=== PATIENT | male | born 1960 | race Caucasian/White ===

== ENCOUNTER 2017-03-21 01:18 | Emergency (ER) | payer OTHER ==
[2017-03-21 01:50] VITALS: TEMP 98; BMI 22.0
[2017-03-21] MEDS ORDERED: SODIUM CHLORIDE 1,000 ML IV STA (03:07)
--- NOTE | 2017-03-21 03:23 | PDOC ---
History of Present Illness - General Chief Complaint: Injury Stated Complaint: FALL,HEROIN ABUSE Time Seen by Provider: 03/21/17 02:56 History Source: Patient, Family Exam Limitations: Clinical Condition - History of Present Illness Initial Comments: 03/21/17 03:21 56yo Male patient w/ PmHx: Chronic Back Pain, Heroin Abuse presents to ED via EMS from [facility]. Patient states he used a bundle of heroin, and while attending to his daughters' puppy, he slipped and fell in his Kitchen. Patient states daughter found him on kitchen floor and they decided to bring patient to [facility] for Detox. Patient was evaluated at [facility] and sent to this ED for evaluation. PCP-None. Occurred: reports: this evening. denies: just prior to arrival, this morning, this afternoon, yesterday, last week, other Severity: reports: moderate. denies: mild, severe Pain Location: reports: back, pelvis, upper extremity. denies: none, abdomen, chest, face, head, lower extremity, mouth, neck, other Method of Injury: Yes: fall. No: unknown, assault, direct blow, motor vehicle crash, other Modifying Factors: worse with: None, cold therapy, immobilization, pain medication, rest, other Loss of Consciousness: no loss of consciousness Associated Symptoms (Fall): denies symptoms Past History - Travel Traveled outside of the country in the last 30 days: No Close contact w/someone who was outside of country & ill: No - Past Medical History Allergies/Adverse Reactions: Allergies Allergy/AdvReac Type Severity Reaction Status Date / Time No Known Allergies Allergy Verified 03/21/17 01:41 COPD: No Other medical history: back pain - Suicide/Smoking/Psychosocial Hx Smoking History: Current some day smoker Have you smoked in the past 12 months: No Information on smoking cessation initiated: No Hx Alcohol Use: Yes Drug/Substance Use Hx: Yes Trauma Specific PMHX - Complaint Specific PMHX Arthritis: No Back Injury: No Neck Injury: No Hx Sacro Iliac Joint Dysfunction: No Review of Systems - Review of Systems Able to Perform ROS?: Yes Is the patient limited Armenian proficient: No Musculoskeletal: Yes: Back Pain, Joint Pain All Other Systems: Reviewed and Negative *Physical Exam - Vital Signs Last Vital Signs Temp Pulse Resp BP Pulse Ox 98 F 75 16 108/68 100 03/21/17 01:35 03/21/17 01:35 03/21/17 01:35 03/21/17 01:35 03/21/17 01:35 - Physical Exam General Appearance: Yes: Nourished, Appropriately Dressed, Other (Under the influence of a substance (Heroin)). No: Apparent Distress, Mild Distress, Moderate Distress, Severe Distress HEENT: positive: EOMI, SABINA (Pinpoint pupils), Normal ENT Inspection, Normal Voice, Symmetrical, TMs Normal, Pharynx Normal. negative: Pharyngeal Erythema, Tonsillar Exudate, Tonsillar Erythema, Nasal Congestion, Rhinorrhea, Sinus Tenderness Neck: positive: Trachea midline, Supple. negative: Rigid, Stridor, Lymphadenopathy (R), Lymphadenopathy (L), Tender lateral, Tender midline Respiratory/Chest: positive: Lungs Clear, Normal Breath Sounds. negative: Chest Tender, Respiratory Distress, Accessory Muscle Use, Labored Respiration, Rapid RR, Crackles, Rales, Rhonchi, Stridor, Wheezing Cardiovascular: positive: Regular Rhythm, Regular Rate Gastrointestinal/Abdominal: positive: Normal Bowel Sounds, Soft, Hernia. negative: Tender, Distended, Guarding, Rebound, Tenderness Musculoskeletal: positive: Normal Inspection. negative: CVA Tenderness, Decreased Range of Motion, Vertebral Tenderness Extremity: positive: Normal Capillary Refill, Normal Inspection, Normal Range of Motion, Tender (Right hip and Left Shoulder), Pelvis Stable Integumentary: positive: Normal Color, Dry, Warm Neurologic: positive: custodial manager II-XII NML intact, Fully Oriented, Alert, Normal Mood/ Affect, Normal Response, Motor Strength 5/5 ED Treatment Course - RADIOLOGY Radiology Studies Ordered: Category Date Time Status CHEST PA & LAT [RAD] Stat Radiology 03/21/17 03:07 Ordered HIP & PELVIS-RIGHT [RAD] Stat Radiology 03/21/17 03:07 Ordered SHOULDER-RIGHT [RAD] Stat Radiology 03/21/17 03:07 Ordered
--- NOTE | 2017-03-21 04:16 | PDOC ---
*Physical Exam - Vital Signs Last Vital Signs Temp Pulse Resp BP Pulse Ox 98 F 75 16 108/68 100 03/21/17 01:35 03/21/17 01:35 03/21/17 01:35 03/21/17 01:35 03/21/17 01:35 ED Treatment Course - LABORATORY CBC & Chemistry Diagram: 03/21/17 04:20 03/21/17 05:00 Medical Decision Making - Medical Decision Making 03/21/17 04:15 agree with care from JUSTYNA Kent *DC/Admit/Observation/Transfer Diagnosis at time of Disposition: Left hip pain - Discharge Dispostion Disposition: HOME Condition at time of disposition: Good - Referrals - Patient Instructions Printed Discharge Instructions: Help for Hip Pain Additional Instructions: your CAT scan shows no fracture or dislocation. Marked osteoarthritis of the right hip. I recommend taking Motrin for discomfort and follow up with referred orthopedist if pain continues - Post Discharge Activity
[2017-03-21 04:33] LABS: BASOPHIL 0.4 % (0-2.0); EOSINOPHIL 0.1 % (0-4.5); MCH 31.2 pg (25.7-33.7); MCHC 34.3 g/dl (32.0-35.9); MEAN CELL VOLUME 91.1 fl (80-96); MEAN PLT VOLUME 6.9 fl (7.5-11.1); NEUTROPHILS 80.8 % (42.8-82.8); PLATELET COUNT 183 K/MM3 (134-434); RDW 14.9 % (11.9-15.9); WHITE BLOOD COUNT 15.9 K/mm3 (4.0-10.0)
[2017-03-21 05:50] LABS: ALBUMIN 3.6 g/dl (3.4-5.0); ALK PHOS 68 U/L (45-117); ANION GAP 11 (8-16); BILIRUBIN,TOTAL 0.4 mg/dL (0.2-1.0); CALCIUM 8.3 mg/dL (8.5-10.1); CO2 23 mmol/L (21-32); CREATININE 2.1 mg/dL (0.7-1.3); GLUCOSE,RANDOM 99 mg/dL (74-106); SGPT/ALT 180 U/L (12-78); TOT PROT 6.2 g/dl (6.4-8.2)
[2017-03-21 05:51] LABS: SGOT/AST 745 U/L (15-37)
--- NOTE | 2017-03-21 07:36 | PDOC ---
*Physical Exam - Vital Signs Last Vital Signs Temp Pulse Resp BP Pulse Ox 98 F 75 16 108/68 100 03/21/17 01:35 03/21/17 01:35 03/21/17 01:35 03/21/17 01:35 03/21/17 01:35 ED Treatment Course - LABORATORY CBC & Chemistry Diagram: 03/21/17 04:20 03/21/17 05:00 - ADDITIONAL ORDERS Additional order review: Laboratory Results 03/21/17 03/21/17 03/21/17 05:00 05:00 04:20 Sodium 139 Potassium 4.6 Chloride 105 Carbon Dioxide 23 Anion Gap 11 BUN 28 H Creatinine 2.1 H Creat Clearance w eGFR 32.95 Random Glucose 99 Calcium 8.3 L Total Bilirubin 0.4 AST 745 H ALT 180 H Alkaline Phosphatase 68 Total Protein 6.2 L Albumin 3.6 Alcohol, Quantitative 53.6 H* Cancelled 03/21/17 04:20 Sodium Cancelled Potassium Cancelled Chloride Cancelled Carbon Dioxide Cancelled Anion Gap Cancelled BUN Cancelled Creatinine Cancelled Creat Clearance w eGFR Cancelled Random Glucose Cancelled Calcium Cancelled Total Bilirubin Cancelled AST Cancelled ALT Cancelled Alkaline Phosphatase Cancelled Total Protein Cancelled Albumin Cancelled Alcohol, Quantitative 03/21/17 04:20 RBC 4.87 MCV 91.1 MCHC 34.3 RDW 14.9 MPV 6.9 L Neutrophils % 80.8 Lymphocytes % 11.7 Monocytes % 7.0 Eosinophils % 0.1 Basophils % 0.4 - Medications Given in the ED: ED Medications Discontinued Medications Generic Name Dose Route Start Last Admin Trade Name Freq PRN Reason Stop Dose Admin Sodium Chloride 1,000 mls @ 1,000 mls/hr 03/21/17 03:07 03/21/17 04:32 Normal Saline - IV 03/21/17 04:06 1,000 mls/hr ASDIR STA Administration Medical Decision Making - Medical Decision Making 03/21/17 07:36 Patient received in sign out from preston Clark Patient here with complaints of status post fall with complaints of bilateral hip pain and left shoulder pain. Patient had CAT scan performed of the lower extremity which showed no acute findings. Shoulder x-ray and chest x-ray negative for acute findings. Pelvic CT pending 03/21/17 07:[address] -. *DC/Admit/Observation/Transfer Diagnosis at time of Disposition: Left hip pain - Discharge Dispostion Disposition: HOME Condition at time of disposition: Good - Referrals - Patient Instructions Printed Discharge Instructions: Help for Hip Pain Additional Instructions: your CAT scan shows no fracture or dislocation. Marked osteoarthritis of the right hip. I recommend taking Motrin for discomfort and follow up with referred orthopedist if pain continues - Post Discharge Activity
[2017-03-21 08:45] VITALS: BP 110/71; PULSE 72
== END 2017-03-21 08:45 | disposition home or self-care (01) ==
LOC: JER 01:18
PROC: 3E0337Z Introduction of Electrolytic and Water Balance Substance into Peripheral Vein, Percutaneous Approach (ICD-10-PCS; principal; 2017-03-21)
DX: M25.512 Pain in left shoulder (principal); M25.552 Pain in left hip; W01.0XXA Fall on same level from slipping, tripping and stumbling without subsequent striking against object, initial encounter; Y93.K9 Activity, other involving animal care; Y92.030 Kitchen in apartment as the place of occurrence of the external cause
CPT/HCPCS: 36415; 71020-TC; 72192-TC; 73030-TC-LT; 73523-TC; 80053; 80307; 85025; 99283-25

== ENCOUNTER 2017-03-21 10:36 | Inpatient (IN) | payer OTHER ==
[2017-03-21 10:54] VITALS: BMI 22.8
--- NOTE | 2017-03-21 12:28 | HP ---
COWS - Scale Resting Pulse: 1= [place] 81-100 Sweatin= Chills/Flushing Restless Observation: 3= Extraneous Movement Pupil Size: 0= Normal to Room Light Bone or Joint Aches: 4=Acute Joint/Muscle Pain Runny Nose/ Eye Tearin= None GI Upset > 30mins: 0= None Tremor Observation: 2= Slight Tremor Visible Yawning Observation: 0= None Anxiety or Irritability: 2=Irritable/Anxious Goose Flesh Skin: 0=Smooth Skin COWS Score: 13 CIWA Score - CIWA Score Nausea/Vomitin-No Nausea/No Vomiting Muscle Tremors: 5 Anxiety: 5 Agitation: 4-Moderately Restless Paroxysmal Sweats: No Perspiration Orientation: 0-Oriented Tacttile Disturbances: 3-Moderate Itch/Numb/Burn Auditory Disturbances: 0-None Visual Disturbances: 0-None Headache: 0-None Present CIWA-Ar Total Score: 17 Admission ROS BHS - HPI Chief Complaint: WITHDRAWAL SX FROM HEROIN AND ALCOHOL Allergies/Adverse Reactions: Allergies Allergy/AdvReac Type Severity Reaction Status Date / Time No Known Allergies Allergy Verified 03/21/17 11:02 History of Present Illness: 56 Y/O MALE WITH A HX OF HEROIN AND ALCOHOL DEPENDENCE SEEKING DETOX TX. PT RETURNED FROM [facility] THIS MORNING TO FOLLOW UP WITH DETOX AFTER CLEARANCE RE:FALL AT HOME YESTERDAY.. Exam Limitations: No Limitations - Ebola screening Have you traveled outside of the country in the last 21 days: No Have you had contact with anyone from an Ebola affected area: No Have you been sick,other than usual withdrawal symptoms: No Do you have a fever: No - Review of Systems Constitutional: Chills, Loss of Appetite, Night Sweats, Changes in sleep, Unintentional Wgt. Loss EENT: reports: Blurred Vision, Tearing, Nose Congestion Respiratory: reports: No Symptoms reported Cardiac: reports: Lightheadedness GI: reports: Constipated (TAKES STOOL SOFTENER), Diarrhea, Nausea, Poor Fluid Intake, Vomiting : reports: No Symptoms Reported Musculoskeletal: reports: Back Pain, Joint Pain, Muscle Pain Integumentary: reports: Bruising (FROM FALL-LEFT HIP SWELLING) Neuro: reports: Dizziness Endocrine: reports: No Symptoms Reported Hematology: reports: No Symptoms Reported Psychiatric: reports: Orientated x3, Anxious, Depressed Other Systems: Reviewed and Negative Patient History - Patient Medical History Hx Anemia: No Hx Asthma: No Hx Chronic Obstructive Pulmonary Disease (COPD): No Hx Cardiac Disorders: No Hx Hypertension: No Hx Hypercholesterolemia: No HX Cerebrovascular Accident: No Hx Seizures: No Hx Diabetes: No Hx Gastrointestinal Disorders: Yes (ON/OFF-USES BAKING SODA) Hx Liver Disease: No Hx Genitourinary Disorders: No Hx Sexually Transmitted Disorders: No Hx Renal Disease (ESRD): No Hx Thyroid Disease: No Hx Human Immunodeficiency Virus (HIV): No (NEGATIVE HX) Hx Hepatitis C: No Hx Depression: Yes (DX 15 YRS AGO-STOPPED MEDS AND NEVER WENT BACK TO DR.) Hx Suicide Attempt: No Hx Schizophrenia: No - Patient Surgical History Past Surgical History: No Hx Neurologic Surgery: No Hx Cataract Extraction: No Hx Cardiac Surgery: No Hx Lung Surgery: No Hx Breast Surgery: No Hx Breast Biopsy: No Hx Abdominal Surgery: No Hx Appendectomy: No Hx Cholecystectomy: No Hx Genitourinary Surgery: No Hx Orthopedic Surgery: No Anesthesia Reaction: No - PPD History Previous Implant?: Yes Documented Results: Negative w/o proof Implanted On Prior [facility] Admission?: No PPD to be Administered?: Yes - Reproductive History Patient is a Female of Child Bearing Age (11 -55 yrs old): No (MALE) - Smoking Cessation Smoking history: Current every day smoker Have you smoked in the past 12 months: Yes Aproximately how many cigarettes per day: 20 Hx Chewing Tobacco Use: No Initiated information on smoking cessation: Yes 'Breaking Loose' booklet given: 03/21/17 - Substance & Tx. History Hx Alcohol Use: Yes (WHISKEY/BEER) Hx Substance Use: Yes (HEROIN) Substance Use Type: Alcohol, Heroin Hx Substance Use Treatment: Yes ([facility]) - Substances Abused Heroin Route: Inhalation Frequency: Daily Amount used: 10-15 bags Age of first use: 51 Date of Last Use: 03/20/17 Alcohol-whisky/beer Route: Oral Frequency: Daily Amount used: 2 pts./3-6 pks. Age of first use: 11 Date of Last Use: 03/20/17 Family Disease History - Family Disease History Family Disease History: Heart Disease: Mother (SX-ALIVE), CA: Father (LUNG CA- ), Other: Brother (ADDICTION) Admission Physical Exam BHS - Vital Signs Vital Signs: Vital Signs - 24 hr 03/21/17 10:53 Temperature 97.7 F Pulse Rate 90 Respiratory 20 Rate Blood Pressure 124/65 - Physical General Appearance: Yes: Severe Distress, Irritable, Anxious HEENTM: Yes: EOMI, Normocephalic, SABINA, Pharynx Normal Respiratory: Yes: Chest Non-Tender, Lungs Clear, Normal Breath Sounds, No Respiratory Distress Neck: Yes: No masses,lesions,Nodules, Supple, Trachea in good position Breast: Yes: Breast Exam Deferred Cardiology: Yes: Regular Rhythm, Regular Rate, S1, S2 Abdominal: Yes: Normal Bowel Sounds, Non Tender, Flat Genitourinary: Yes: Other (N/C) Back: Yes: Vertebral Tenderness (POST FALL PAIN- GENERALIZED PAIN BUT WITH SEVERITY TO LEFT SIDE SHOULDER AND HIP. HX ARTHRITIS RIGHT SIDE.) Musculoskeletal: Yes: Back pain, Muscle Pain Extremities: Yes: Normal Range of Motion, Swelling (LEFT HIP. NO REDNESS OR DISCOLORATION.), Other (PAIN ON LEFT SIDE) Neurological: Yes: safety spec II-XII NML intact, Fully Oriented, Alert Integumentary: Yes: Dry, Warm Lymphatic: Yes: Within Normal Limits - Diagnostic (1) Opioid dependence with withdrawal Current Visit: Yes Status: Acute (2) Alcohol dependence with uncomplicated withdrawal Current Visit: Yes Status: Acute (3) Left hip pain Current Visit: Yes Status: Acute (4) Status post fall Current Visit: Yes Status: Acute Comment: FELL AT HOME YESTERDAY 03/20/17 AND EVALUATED AT [facility]. (5) Arthritis of right hip Current Visit: Yes Status: Chronic Cleared for Admission [facility] - Detox or Rehab [facility] Level of Care: Medically Managed Detox Regimen/Protocol: Methadone/Librium [facility] Breath Alcohol Content Breath Alcohol Content: 0 Urine Drug Screen - Results Drug Screen Negative: No Urine Drug Screen Results: OPI-Opiates
[2017-03-21] MEDS ORDERED: MAGNESIUM CITRATE 300 ML BOTTLE PO PRN (12:51)
[2017-03-21] MEDS ORDERED: ACETAMINOPHEN 325 MG TABLET (FP) PO PRN (12:51)
[2017-03-21] MEDS ORDERED: NICOTINE POLACRILEX 4 MG GUM BUC PRN (12:51)
[2017-03-21] MEDS ORDERED: MAG HYDROX/AL HYDROX/SIMETH 30 ML UNIT-DOSE CUP PO PRN (12:51)
[2017-03-21] MEDS ORDERED: LOPERAMIDE HCL 2 MG CAPSULE PO PRN (12:51)
[2017-03-21] MEDS ORDERED: MAGNESIUM HYDROX 2400MG/30ML ORAL SUSPENSION 30 ML CUP PO PRN (12:51)
[2017-03-21] MEDS ORDERED: chlordiazePOXIDE HCL 25 MG CAPSULE PO PRN (12:51)
[2017-03-21] MEDS ORDERED: guaiFENesin/D-METHORPHAN HB 10 ML UNIT-DOSE CUPS PO PRN (12:51)
[2017-03-21] MEDS ORDERED: IBUPROFEN 400 MG TABLET (FP) PO PRN (12:51)
[2017-03-21] MEDS ORDERED: MENTHOL/PHENOL 1 EACH UD MM PRN (12:51)
[2017-03-21] MEDS ORDERED: P-EPHED 60MG/TRIPROLIDI 2.5MG TABLET PO PRN (12:51)
[2017-03-21] MEDS ORDERED: chlordiazePOXIDE HCL 25 MG CAPSULE PO ONE (13:01)
[2017-03-21] MEDS ORDERED: METHADONE HCL 10 MG TABLET (FOR DETOX USE ONLY) PO ONE ×2 (13:02→23:00)
[2017-03-21] MEDS: NICOTINE 21 MG/24 HOURS TOPICAL PATCH TD SCH (14:28)
--- NOTE | 2017-03-21 15:08 | CONSULT ---
[facility] Psychiatric Consult - Data Date of interview: 03/21/17 Admission source: [facility] Identifying data: This is 56 years old male with psychiatric hospitalization history intoxicated with: Alcohol, Heroin and Nicotine Substance Abuse History: - Smoking Cessation. Smoking history: Current every day smoker. Have you smoked in the past 12 months: Yes. Aproximately how many cigarettes per day: 20. Hx Chewing Tobacco Use: No. Initiated information on smoking cessation: Yes. 'Breaking Loose' booklet given: 03/21/17. - Substance & Tx. History. Hx Alcohol Use: Yes (WHISKEY/BEER). Hx Substance Use: Yes ( HEROIN). Substance Use Type: Alcohol, Heroin. Hx Substance Use Treatment: Yes ([facility]OX). - Substances Abused. Heroin. Route: Inhalation. Frequency: Daily. Amount used: 10-15 bags. Age of first use: 51. Date of Last Use: 03/20/17. Alcohol-whisky/beer. Route: Oral. Frequency: Daily. Amount used: 2 pts./3-6 pks. Age of first use: 11. Date of Last Use: 03/20/17 Medical History: Left Hip injury, Right Hip Arthritis Psychiatric History: Patient reports no past psychioatric history, as per computer there is a history of Depression , patient refusing to continue psychiatric medications on about one year ago. Reports unclear psychiatric hospitalization on about 81 years ago, denies suicidal history. Physical/Sexual Abuse/Trauma History: Denies Additional Comment: Observation. Detox Unit Care Protocol Mental Status Exam - Mental Status Exam Alert and Oriented to: Person Cognitive Function: Fair Mood: Sad Affect: Flat Patient Behavior: Uncooperative Speech Pattern: Delayed Voice Loudness: Mildly Soft/Quiet Thought Process: Goal Oriented Thought Disorder: Being Controlled Hallucinations: Denies Suicidal Ideation: Denies Homicidal Ideation: Denies Insight/Judgement: Fair Sleep: Difficulty falling asleep Appetite: Weight loss Muscle strength/Tone: Mild Hypotonicity Gait/Station: Deferred Additional Comments: Observation. Detox Unit Care Protocol Psychiatric Findings - Problem List (Copen 1, 2,3) (1) Drug-induced mood disorder Current Visit: Yes Status: Acute (2) Drug-induced mood disorder Current Visit: Yes Status: Acute (3) Alcohol dependence with uncomplicated withdrawal Current Visit: Yes Status: Acute (4) Opioid dependence with withdrawal Current Visit: Yes Status: Acute (5) Status post fall Current Visit: Yes Status: Acute Comment: FELL AT HOME YESTERDAY 03/20/17 AND EVALUATED AT [facility]. - Initial Treatment Plan Initial Treatment Plan: Observation. Detox Unit Care Protocol
[2017-03-21] MEDS: chlordiazePOXIDE HCL 25 MG CAPSULE PO SCH ×2 (17:46→22:58)
[2017-03-21] MEDS: THIAMINE HCL 100 MG TABLET (FP) PO SCH (22:59)
[2017-03-22 03:26] LABS: URINE APPEARANCE CLOUDY; URINE BILIRUBIN NEGATIVE (NEGATIVE); URINE BLOOD 3+ (NEGATIVE); URINE COLOR AMBER; URINE GLUCOSE (UA) 1+ (NEGATIVE); URINE KETONE NEGATIVE (NEGATIVE); URINE NITRITE NEGATIVE (NEGATIVE); URINE UROBILINOGEN NEGATIVE mg/dL (0.2-1.0)
[2017-03-22 03:34] LABS: URINE PROTEIN 2+ (NEGATIVE)
[2017-03-22 04:13] LABS: URINE BACTERIA RARE /hpf (NONE SEEN); URINE HYALINE CAST 26 /lpf; URINE MUCUS MANY; URINE RBC 20 /hpf (0-3); URINE WBC 53 /hpf (3-5)
[2017-03-22] MEDS: chlordiazePOXIDE HCL 25 MG CAPSULE PO SCH ×5 (05:52→23:27)
[2017-03-22] MEDS ORDERED: METHADONE HCL 10 MG TABLET (FOR DETOX USE ONLY) PO SCH (10:00)
--- NOTE | 2017-03-22 10:16 | EKG ---
Test Reason : Blood Pressure : / mmHG Vent. Rate : 073 BPM Atrial Rate : 073 BPM P-R Int : 142 ms QRS Dur : 086 ms QT Int : 380 ms P-R-T Axes : 060 069 069 degrees QTc Int : 418 ms NORMAL SINUS RHYTHM NO PREVIOUS ECGS AVAILABLE Confirmed by KEVIN MART MD ([id number]) on 03/22/2017 10:15:33 AM Referred By: Confirmed By:KEVIN MART MD
[2017-03-22] MEDS: PRENATAL VITAMINS W/ FOLIC ACID TABLET (FP) PO SCH (10:55)
[2017-03-22] MEDS: NICOTINE 21 MG/24 HOURS TOPICAL PATCH TD SCH (10:56)
[2017-03-22 11:13] LABS: URINE LEUK ESTERASE Negative (NEGATIVE)
--- NOTE | 2017-03-22 13:33 | PN ---
[facility] CIWA - CIWA Score Nausea/Vomitin-No Nausea/No Vomiting Muscle Tremors: 4-Moderate,w/Arms Extend Anxiety: 3 Agitation: 3 Paroxysmal Sweats: 3 Orientation: 2-Disoriented Date<2 days Tacttile Disturbances: 2-Mild Itch/Numbness/Burn Auditory Disturbances: 2-Mild Harshness/Frighten Visual Disturbances: 0-None Headache: 0-None Present CIWA-Ar Total Score: 19 S COWS - Scale Resting Pulse: 0= [place] 80 or Below Sweatin= Chills/Flushing Restless Observation: 1= Difficult to Sit Still Pupil Size: 0= Normal to Room Light Bone or Joint Aches: 0= None Runny Nose/ Eye Tearin= Nasal Congestion GI Upset > 30mins: 1= Stomach Cramp Tremor Observation of Outstretched Hands: 2= Slight Tremor Visible Yawning Observation: 1= 1-2x During Session Anxiety or Irritability: 2=Irritable/Anxious Goose Flesh Skin: 3=Piloerection COWS Score: 12 [facility] Progress Note (SOAP) Subjective: Tremors, Fatigue, Chills, Sweating, Interrupted Sleep. Objective: PT. A & O X 2 (UNCERTAIN ABOUT DAY /DATE). NO ACUTE DISTRESS. 03/22/17 13:31 Vital Signs Temperature 97.3 F L 03/22/17 06:15 Pulse Rate 76 03/22/17 06:15 Respiratory Rate 20 03/22/17 06:15 Blood Pressure 116/68 03/22/17 06:15 O2 Sat by Pulse Oximetry (%) Laboratory Tests 03/21/17 03/22/17 12:55 00:00 Urine Color Sushma Urine Appearance Cloudy Urine pH 5.0 Ur Specific [place] 1.019 Urine Protein 2+ H Urine Glucose (UA) 1+ H Urine Ketones Negative Urine Blood 3+ H Urine Nitrite Negative Urine Bilirubin Negative Urine Urobilinogen Negative Ur Leukocyte Esterase Negative Urine WBC (Auto) 53 Urine RBC (Auto) 20 Ur Epithelial Cells Few Urine Bacteria Rare Hyaline Casts 26 Urine Mucus Many RPR Titer Nonreactive ADMISSION LABS NOTED. 03/22/17 14:24 Assessment: 03/22/17 14:21 WITHDRAWAL SYMPTOMS. LEUKOCYTOSIS. Plan: CONTINUE DETOX. REPEAT UA WITH URINE C + S FOR ADMISSION UA ABNORMALITIES. REPEAT CBC, CMP TOMORROW AM FOR ADMISSION ABNORMALITIES. D/C MAGNESIUM-CONTAINING MEDS. AND IBUPROFEN FOR ABNORMAL RENAL LABS. INCREASE DAILY PO FLUID INTAKE.
[2017-03-22] MEDS: THIAMINE HCL 100 MG TABLET (FP) PO SCH (22:43)
[2017-03-23] MEDS: chlordiazePOXIDE HCL 25 MG CAPSULE PO SCH ×2 (06:15→10:24)
[2017-03-23 10:24] LABS: BASOPHIL 0.6 % (0-2.0); EOSINOPHIL 1.7 % (0-4.5); MCH 30.4 pg (25.7-33.7); MCHC 33.6 g/dl (32.0-35.9); MEAN CELL VOLUME 90.6 fl (80-96); MEAN PLT VOLUME 7.4 fl (7.5-11.1); NEUTROPHILS 70.5 % (42.8-82.8); PLATELET COUNT 135 K/MM3 (134-434); RDW 14.7 % (11.9-15.9); WHITE BLOOD COUNT 7.5 K/mm3 (4.0-10.0)
[2017-03-23] MEDS: PRENATAL VITAMINS W/ FOLIC ACID TABLET (FP) PO SCH (10:24)
[2017-03-23] MEDS: NICOTINE 21 MG/24 HOURS TOPICAL PATCH TD SCH (10:24)
[2017-03-23] MEDS: METHADONE HCL 5 MG TABLET (FOR DETOX USE ONLY) PO SCH (10:24)
[2017-03-23 10:28] LABS: ALBUMIN 2.8 g/dl (3.4-5.0); ALK PHOS 59 U/L (45-117); ANION GAP 4 (8-16); BILIRUBIN,TOTAL 0.4 mg/dL (0.2-1.0); CALCIUM 7.9 mg/dL (8.5-10.1); CO2 29 mmol/L (21-32); CREATININE 1.3 mg/dL (0.7-1.3); GLUCOSE,RANDOM 87 mg/dL (74-106); SGOT/AST 249 U/L (15-37); SGPT/ALT 122 U/L (12-78); TOT PROT 5.7 g/dl (6.4-8.2)
[2017-03-23] MEDS: chlordiazePOXIDE 5 MG CAPSULE PO SCH ×2 (16:06→22:07)
--- NOTE | 2017-03-23 16:48 | PN ---
[facility] CIWA - CIWA Score Nausea/Vomitin-No Nausea/No Vomiting Muscle Tremors: 3 Anxiety: 5 Agitation: 4-Moderately Restless Paroxysmal Sweats: 3 Orientation: 2-Disoriented Date<2 days Tacttile Disturbances: 0-None Auditory Disturbances: 0-None Visual Disturbances: 0-None Headache: 2-Mild CIWA-Ar Total Score: 19 [facility] COWS - Scale Resting Pulse: 0= [place] 80 or Below Sweatin= Chills/Flushing Restless Observation: 0= Sits Still Pupil Size: 0= Normal to Room Light Bone or Joint Aches: 2= Severe Diffuse Aches Runny Nose/ Eye Tearin= None GI Upset > 30mins: 2= Nausea/Diarrhea Tremor Observation of Outstretched Hands: 2= Slight Tremor Visible Yawning Observation: 1= 1-2x During Session Anxiety or Irritability: 2=Irritable/Anxious Goose Flesh Skin: 3=Piloerection COWS Score: 13 [facility] Progress Note (SOAP) Subjective: Diarrhea, Sweating, Body Aches, H/A, Anxious, Interrupted Sleep. Objective: PT. A & O X 2 (UNCERTAIN ABOUT CURRENT DAY/ DATE). NO ACUTE DISTRESS. 03/23/17 16:44 Vital Signs Temperature 98.9 F 03/23/17 13:27 Pulse Rate 75 03/23/17 13:27 Respiratory Rate 18 03/23/17 13:27 Blood Pressure 95/56 03/23/17 13:27 O2 Sat by Pulse Oximetry (%) Laboratory Tests 03/21/17 03/22/17 03/23/17 12:55 00:00 08:20 WBC 7.5 D RBC 4.39 Hgb 13.4 D Hct 39.8 MCV 90.6 MCH 30.4 MCHC 33.6 RDW 14.7 Plt Count 135 D MPV 7.4 L Neutrophils % 70.5 Lymphocytes % 17.7 D Monocytes % 9.5 Eosinophils % 1.7 D Basophils % 0.6 Sodium Potassium Chloride Carbon Dioxide Anion Gap BUN Creatinine Creat Clearance w eGFR Random Glucose Calcium Total Bilirubin AST ALT Alkaline Phosphatase Total Protein Albumin Urine Color Sushma Urine Appearance Cloudy Urine pH 5.0 Ur Specific [place] 1.019 Urine Protein 2+ H Urine Glucose (UA) 1+ H Urine Ketones Negative Urine Blood 3+ H Urine Nitrite Negative Urine Bilirubin Negative Urine Urobilinogen Negative Ur Leukocyte Esterase Negative Urine WBC (Auto) 53 Urine RBC (Auto) 20 Ur Epithelial Cells Few Urine Bacteria Rare Hyaline Casts 26 Urine Mucus Many RPR Titer Nonreactive 03/23/17 08:20 WBC RBC Hgb Hct MCV MCH MCHC RDW Plt Count MPV Neutrophils % Lymphocytes % Monocytes % Eosinophils % Basophils % Sodium 140 Potassium 4.3 Chloride 107 Carbon Dioxide 29 D Anion Gap 4 L BUN 28 H Creatinine 1.3 D Creat Clearance w eGFR 57.31 Random Glucose 87 Calcium 7.9 L Total Bilirubin 0.4 AST 249 H D ALT 122 H D Alkaline Phosphatase 59 Total Protein 5.7 L Albumin 2.8 L D Urine Color Urine Appearance Urine pH Ur Specific [place] Urine Protein Urine Glucose (UA) Urine Ketones Urine Blood Urine Nitrite Urine Bilirubin Urine Urobilinogen Ur Leukocyte Esterase Urine WBC (Auto) Urine RBC (Auto) Ur Epithelial Cells Urine Bacteria Hyaline Casts Urine Mucus RPR Titer LABS NOTED. RESULTS OF REPEAT CBC, CMP NOTED. RESULTS OF REPEAT UA AND URINE C + S PENDING. PATIENT DENIES ANY UNUSUAL URINARY SYMPTOMS (BURNING, PAIN, FREQUENCY, URGENCY, ETC). 03/23/17 16:46 03/23/17 16:49 Assessment: 03/23/17 16:45 WITHDRAWAL SYMPTOMS. Plan: CONTINUE DETOX. INCREASE DAILY PO FLUID INTAKE. PRN IMMODIUM FOR DIARRHEA.
[2017-03-23 18:19] LABS: PH,URINE 5.5 (5.0-8.0); URINE APPEARANCE CLEAR; URINE BILIRUBIN NEGATIVE (NEGATIVE); URINE BLOOD 1+ (NEGATIVE); URINE COLOR LT. YELLOW; URINE GLUCOSE (UA) NEGATIVE (NEGATIVE); URINE KETONE NEGATIVE (NEGATIVE); URINE NITRITE NEGATIVE (NEGATIVE); URINE PROTEIN NEGATIVE (NEGATIVE); URINE UROBILINOGEN 0.2 mg/dL (0.2-1.0)
[2017-03-23 18:27] LABS: URINE BACTERIA RARE /hpf (NONE SEEN); URINE MUCUS RARE; URINE RBC 3 /hpf (0-3); URINE WBC 5 /hpf (3-5)
[2017-03-23] MEDS: THIAMINE HCL 100 MG TABLET (FP) PO SCH (22:07)
[2017-03-23 22:46] LABS: URINE LEUK ESTERASE Negative (NEGATIVE)
[2017-03-24] MEDS: chlordiazePOXIDE 5 MG CAPSULE PO SCH ×2 (05:25→10:25)
[2017-03-24] MEDS: NICOTINE 21 MG/24 HOURS TOPICAL PATCH TD SCH (10:25)
[2017-03-24] MEDS: PRENATAL VITAMINS W/ FOLIC ACID TABLET (FP) PO SCH (10:25)
[2017-03-24] MEDS: METHADONE HCL 5 MG TABLET (FOR DETOX USE ONLY) PO SCH (10:25)
--- NOTE | 2017-03-24 16:03 | PN ---
S Progress Note (SOAP) Subjective: Headache, stomach ache, sweating, N/V, interrupted sleep Objective: 03/24/17 15:58 Last Vital Signs Temp Pulse Resp BP Pulse Ox 98.0 F 91 H 20 104/64 03/24/17 09:15 03/24/17 09:15 03/24/17 09:15 03/24/17 09:15 Laboratory Tests 03/21/17 03/22/17 03/23/17 12:55 00:00 08:20 WBC 7.5 D RBC 4.39 Hgb 13.4 D Hct 39.8 MCV 90.6 MCH 30.4 MCHC 33.6 RDW 14.7 Plt Count 135 D MPV 7.4 L Neutrophils % 70.5 Lymphocytes % 17.7 D Monocytes % 9.5 Eosinophils % 1.7 D Basophils % 0.6 Sodium Potassium Chloride Carbon Dioxide Anion Gap BUN Creatinine Creat Clearance w eGFR Random Glucose Calcium Total Bilirubin AST ALT Alkaline Phosphatase Total Protein Albumin Urine Color Sushma Urine Appearance Cloudy Urine pH 5.0 Ur Specific [place] 1.019 Urine Protein 2+ H Urine Glucose (UA) 1+ H Urine Ketones Negative Urine Blood 3+ H Urine Nitrite Negative Urine Bilirubin Negative Urine Urobilinogen Negative Ur Leukocyte Esterase Negative Urine WBC (Auto) 53 Urine RBC (Auto) 20 Ur Epithelial Cells Few Urine Bacteria Rare Hyaline Casts 26 Urine Mucus Many RPR Titer Nonreactive 03/23/17 03/23/17 08:20 16:30 WBC RBC Hgb Hct MCV MCH MCHC RDW Plt Count MPV Neutrophils % Lymphocytes % Monocytes % Eosinophils % Basophils % Sodium 140 Potassium 4.3 Chloride 107 Carbon Dioxide 29 D Anion Gap 4 L BUN 28 H Creatinine 1.3 D Creat Clearance w eGFR 57.31 Random Glucose 87 Calcium 7.9 L Total Bilirubin 0.4 AST 249 H D ALT 122 H D Alkaline Phosphatase 59 Total Protein 5.7 L Albumin 2.8 L D Urine Color Lt. yellow Urine Appearance Clear Urine pH 5.5 Ur Specific [place] 1.025 Urine Protein Negative Urine Glucose (UA) Negative Urine Ketones Negative Urine Blood 1+ H Urine Nitrite Negative Urine Bilirubin Negative Urine Urobilinogen 0.2 Ur Leukocyte Esterase Negative Urine WBC (Auto) 5 Urine RBC (Auto) 3 Ur Epithelial Cells Rare Urine Bacteria Rare Hyaline Casts Urine Mucus Rare RPR Titer Labs noted: BUN 28, serum creatinine 1.3, abnormal UA Assessment: 03/24/17 16:00 Withdrawal symptoms Noted with prerenal azotemia and abnormal UA Plan: Continue detox Ambien 10mg PO qhs prn ordered Prerenal azotemia: encouraged to drink lots of water, repeat BMP Abnormal UA: follow up on urine c&s (result pending)
[2017-03-24] MEDS: chlordiazePOXIDE HCL 10 MG CAPSULE PO SCH ×2 (17:18→22:34)
[2017-03-24] MEDS: THIAMINE HCL 100 MG TABLET (FP) PO SCH (22:34)
[2017-03-24] MEDS: ZOLPIDEM TARTRATE 5 MG TABLET PO PRN (22:37)
[2017-03-25] MEDS: chlordiazePOXIDE HCL 10 MG CAPSULE PO SCH ×2 (05:50→10:34)
[2017-03-25] MEDS ORDERED: ONDANSETRON *ODT* 4 MG TABLET SL ONE (09:15)
--- NOTE | 2017-03-25 09:15 | PN ---
[facility] Progress Note (SOAP) Subjective: nausea, sweats, interrupted sleep, anxiety, tremors Objective: 03/25/17 09:14 Vital Signs - 24 hr 03/24/17 03/24/17 03/24/17 09:15 18:03 22:44 Temperature 98.0 F 98.3 F 99 F Pulse Rate 91 H 85 87 Respiratory 20 18 18 Rate Blood Pressure 104/64 110/69 102/61 03/25/17 03/25/17 04:13 06:33 Temperature 97.5 F L Pulse Rate 72 Respiratory 18 18 Rate Blood Pressure 107/64 Laboratory Tests 03/21/17 03/22/17 03/23/17 12:55 00:00 08:20 WBC 7.5 D RBC 4.39 Hgb 13.4 D Hct 39.8 MCV 90.6 MCH 30.4 MCHC 33.6 RDW 14.7 Plt Count 135 D MPV 7.4 L Neutrophils % 70.5 Lymphocytes % 17.7 D Monocytes % 9.5 Eosinophils % 1.7 D Basophils % 0.6 Sodium Potassium Chloride Carbon Dioxide Anion Gap BUN Creatinine Creat Clearance w eGFR Random Glucose Calcium Total Bilirubin AST ALT Alkaline Phosphatase Total Protein Albumin Urine Color Sushma Urine Appearance Cloudy Urine pH 5.0 Ur Specific [place] 1.019 Urine Protein 2+ H Urine Glucose (UA) 1+ H Urine Ketones Negative Urine Blood 3+ H Urine Nitrite Negative Urine Bilirubin Negative Urine Urobilinogen Negative Ur Leukocyte Esterase Negative Urine WBC (Auto) 53 Urine RBC (Auto) 20 Ur Epithelial Cells Few Urine Bacteria Rare Hyaline Casts 26 Urine Mucus Many RPR Titer Nonreactive 03/23/17 03/23/17 08:20 16:30 WBC RBC Hgb Hct MCV MCH MCHC RDW Plt Count MPV Neutrophils % Lymphocytes % Monocytes % Eosinophils % Basophils % Sodium 140 Potassium 4.3 Chloride 107 Carbon Dioxide 29 D Anion Gap 4 L BUN 28 H Creatinine 1.3 D Creat Clearance w eGFR 57.31 Random Glucose 87 Calcium 7.9 L Total Bilirubin 0.4 AST 249 H D ALT 122 H D Alkaline Phosphatase 59 Total Protein 5.7 L Albumin 2.8 L D Urine Color Lt. yellow Urine Appearance Clear Urine pH 5.5 Ur Specific [place] 1.025 Urine Protein Negative Urine Glucose (UA) Negative Urine Ketones Negative Urine Blood 1+ H Urine Nitrite Negative Urine Bilirubin Negative Urine Urobilinogen 0.2 Ur Leukocyte Esterase Negative Urine WBC (Auto) 5 Urine RBC (Auto) 3 Ur Epithelial Cells Rare Urine Bacteria Rare Hyaline Casts Urine Mucus Rare RPR Titer elevated lfts, dehydration Assessment: 03/25/17 09:14 withdrawal sx, elevated lfts, dehydration cont detox, wsymptomatic relief, fluids, repeat labs.
[2017-03-25] MEDS ORDERED: METHADONE HCL 10 MG TABLET (FOR DETOX USE ONLY) PO SCH (10:00)
[2017-03-25 10:15] LABS: ANION GAP 4 (8-16); CALCIUM 8.6 mg/dL (8.5-10.1); CO2 32 mmol/L (21-32); GLUCOSE,RANDOM 86 mg/dL (74-106)
[2017-03-25] MEDS: NICOTINE 21 MG/24 HOURS TOPICAL PATCH TD SCH (10:35)
[2017-03-25] MEDS: PRENATAL VITAMINS W/ FOLIC ACID TABLET (FP) PO SCH (10:35)
[2017-03-25] MEDS: CYCLOBENZAPRINE HCL 10 MG TABLET (FP) PO SCH ×2 (14:15→22:21)
[2017-03-25] MEDS: THIAMINE HCL 100 MG TABLET (FP) PO SCH (22:21)
[2017-03-25] MEDS: ZOLPIDEM TARTRATE 5 MG TABLET PO PRN (22:25)
[2017-03-26] MEDS ORDERED: METHADONE HCL 5 MG TABLET (FOR DETOX USE ONLY) PO SCH (06:00)
[2017-03-26] MEDS: CYCLOBENZAPRINE HCL 10 MG TABLET (FP) PO SCH ×2 (06:05→14:04)
[2017-03-26 10:02] VITALS: BP 98/62; PULSE 97; TEMP 98.5
[2017-03-26] MEDS: NICOTINE 21 MG/24 HOURS TOPICAL PATCH TD SCH (10:33)
[2017-03-26] MEDS: PRENATAL VITAMINS W/ FOLIC ACID TABLET (FP) PO SCH (10:33)
--- NOTE | 2017-03-26 14:43 | DS ---
[facility] Detox Discharge Summary Admission Date: 03/21/17 Discharge Date: 03/26/17 - History Present History: Alcohol Dependence, Opioid Dependence Additional Comments: PATIENT GOING TO [facility] AFTER[facility]ARE. PATIENT WAS DISCHARGED FROM DETOX UNIT TO BE TAKEN TO REHAB UNIT IN STABLE MEDICAL CONDITION. Pertinent Past History: Depression, History of Arthritis of Right Hip, S/P Fall, Left Hip Pain. - Physical Exam Results Vital Signs: Vital Signs Temperature 98.5 F 03/26/17 10:00 Pulse Rate 97 H 03/26/17 10:00 Respiratory Rate 18 03/26/17 10:00 Blood Pressure 98/62 03/26/17 10:00 O2 Sat by Pulse Oximetry (%) Pertinent Admission Physical Exam Findings: WITHDRAWAL SYMPTOMS. Laboratory Tests 03/21/17 03/22/17 03/23/17 12:55 00:00 08:20 WBC 7.5 D RBC 4.39 Hgb 13.4 D Hct 39.8 MCV 90.6 MCH 30.4 MCHC 33.6 RDW 14.7 Plt Count 135 D MPV 7.4 L Neutrophils % 70.5 Lymphocytes % 17.7 D Monocytes % 9.5 Eosinophils % 1.7 D Basophils % 0.6 Sodium Potassium Chloride Carbon Dioxide Anion Gap BUN Creatinine Creat Clearance w eGFR Random Glucose Calcium Total Bilirubin AST ALT Alkaline Phosphatase Total Protein Albumin Urine Color Sushma Urine Appearance Cloudy Urine pH 5.0 Ur Specific [place] 1.019 Urine Protein 2+ H Urine Glucose (UA) 1+ H Urine Ketones Negative Urine Blood 3+ H Urine Nitrite Negative Urine Bilirubin Negative Urine Urobilinogen Negative Ur Leukocyte Esterase Negative Urine WBC (Auto) 53 Urine RBC (Auto) 20 Ur Epithelial Cells Few Urine Bacteria Rare Hyaline Casts 26 Urine Mucus Many RPR Titer Nonreactive 03/23/17 03/23/17 03/25/17 08:20 16:30 07:00 WBC RBC Hgb Hct MCV MCH MCHC RDW Plt Count MPV Neutrophils % Lymphocytes % Monocytes % Eosinophils % Basophils % Sodium 140 138 Potassium 4.3 4.4 Chloride 107 102 Carbon Dioxide 29 D 32 Anion Gap 4 L 4 L BUN 28 H 20 H D Creatinine 1.3 D 1.0 D Creat Clearance w eGFR 57.31 Random Glucose 87 86 Calcium 7.9 L 8.6 Total Bilirubin 0.4 AST 249 H D ALT 122 H D Alkaline Phosphatase 59 Total Protein 5.7 L Albumin 2.8 L D Urine Color Lt. yellow Urine Appearance Clear Urine pH 5.5 Ur Specific [place] 1.025 Urine Protein Negative Urine Glucose (UA) Negative Urine Ketones Negative Urine Blood 1+ H Urine Nitrite Negative Urine Bilirubin Negative Urine Urobilinogen 0.2 Ur Leukocyte Esterase Negative Urine WBC (Auto) 5 Urine RBC (Auto) 3 Ur Epithelial Cells Rare Urine Bacteria Rare Hyaline Casts Urine Mucus Rare RPR Titer LABS NOTED. - Treatment Hospital Course: Detox Protocol Followed, Detoxed Safely, Responded well, Discharged Condition Good, Rehab Referral Accepted Patient has Accepted a Rehab Referral to: [facility]. - Medication Discharge Medications: Ambulatory Orders NK [No Known Home Medication] 03/21/17 - Diagnosis (1) Alcohol dependence with uncomplicated withdrawal Status: Acute (2) Opioid dependence with withdrawal Status: Acute (3) Drug-induced mood disorder Status: Acute (4) Left hip pain Status: Acute (5) Status post fall Status: Acute (6) Arthritis of right hip Status: Chronic - AMA Did Patient Leave Against Medical Advice: No
== END 2017-03-26 14:36 | disposition other institution (70) | DRG 773 ==
LOC: YASAS 10:36 → Y3N 12:08
PROVIDERS: ADMIT Internal Medicine; ATTEND Internal Medicine
PROC: HZ2ZZZZ Detoxification Services for Substance Abuse Treatment (ICD-10-PCS; principal; 2017-03-21)
DX: F11.23 Opioid dependence with withdrawal (principal); F10.230 Alcohol dependence with withdrawal, uncomplicated; F17.210 Nicotine dependence, cigarettes, uncomplicated; F19.24 Other psychoactive substance dependence with psychoactive substance-induced mood disorder; G47.00 Insomnia, unspecified; M25.552 Pain in left hip; M16.11 Unilateral primary osteoarthritis, right hip; K21.9 Gastro-esophageal reflux disease without esophagitis; Z91.81 History of falling; R79.89 Other specified abnormal findings of blood chemistry
CPT/HCPCS: 36415; 80048; 80053; 81003; 81015; 85025; 86593; 87086; 93005; 93010

== ENCOUNTER 2017-03-26 15:07 | Inpatient (IN) | payer OTHER ==
--- NOTE | 2017-03-26 14:40 | HP ---
[facility] Rehab Assess/Revision - Admission History Admitted to Rehab from: [facility] [place] Date of Admission to Rehab: 03/26/2017 - Vital signs Vital Signs: NOTED; STABLE. - Findings Detox History & Physical reviewed: Yes Concur with findings: Yes Comments/Additional Findings: PATIENT'S MEDICAL / MEDICATION HISTORY REVIEWED PRIOR TO DISCHARGE FROM DETOX UNIT. PATIENT WAS DISCHARGED FROM DETOX UNIT TO BE TAKEN TO REHAB UNIT IN STABLE MEDICAL CONDITION. Inpatient Rehab Admission - Initial Determination Are CD services needed?: Yes Free of communicable disease: Yes Not in need of hospitalization: Yes - Rehab Admission Criteria Previous failed treatment: Yes Comorbidities: Yes Patient is meeting Inpatient Rehab admission criteria:: Yes
[~2017-03-26 15:07] MED LIST: ACETAMINOPHEN 325 MG TABLET (FP) PO PRN; IBUPROFEN 400 MG TABLET (FP) PO PRN; LOPERAMIDE HCL 2 MG CAPSULE PO PRN; MAGNESIUM CITRATE 300 ML BOTTLE PO PRN; MAGNESIUM HYDROX 2400MG/30ML ORAL SUSPENSION 30 ML CUP PO PRN; MENTHOL/PHENOL 1 EACH UD MM PRN; NICOTINE POLACRILEX 2 MG GUM BUC PRN; P-EPHED 60MG/TRIPROLIDI 2.5MG TABLET PO PRN; guaiFENesin/D-METHORPHAN HB 10 ML UNIT-DOSE CUPS PO PRN
[2017-03-26] MEDS: THIAMINE HCL 100 MG TABLET (FP) PO SCH (21:04)
[2017-03-27] MEDS ORDERED: hydrOXYzine PAMOATE 25 MG CAPSULE (FP) PO ONE (06:43)
[2017-03-27] MEDS: NICOTINE 21 MG/24 HOURS TOPICAL PATCH TD SCH (10:50)
[2017-03-27] MEDS: PRENATAL VITAMINS W/ FOLIC ACID TABLET (FP) PO SCH (10:50)
--- NOTE | 2017-03-27 12:57 | PN ---
S Progress Note (SOAP) Subjective: REVIEWED LABWORK WITH PATIENT, ABNORMAL LABS ELEVATED LFTS PATIENT IS C/O CENTRAL ABDO PAIN, X A FEW DAYS WORTH WHEN HE STANDS MAYHAVE HERNIA Objective: 03/27/17 12:56 Vital Signs - 8 hr 03/27/17 06:53 Temperature 97.8 F Pulse Rate 70 Respiratory 16 Rate Blood Pressure 98/63 VENTRAL HERNIA, SOFT REDUCIBLE NO REBOUND GUARDING BS+ Assessment: 03/27/17 12:56 REDUCIBLE VENTRAL HERNIA, TO FOLLOW UP WITH pcp ON DISCHARGE IF HE WANTS SURGERY , REPEAT LBS INCLUDING LIPASE TO R/O WORSENING HEPATITIS AND PANCREATITIS. MOTRIN FOR PAIN
--- NOTE | 2017-03-27 13:01 | HP ---
Psychiatrist Admission - Data Date of interview: 03/27/17 Admission source: 3N Identifying data: This is the first 5N inpatient rehabilitation admission for this 56 year old male unemployed and domiciled. Medical History: history of falls and Hep B, pancreatitis, smokes cigarettes 1 PPD. Psychiatric History: Patient denies history of psychiatric treatment, reports he was evaluated by a psychiatrist while in rehabilitation as aprt of assessment , patient is irritable and hostile, but reports he "just angry for myself". C/o insomnia. Physical/Sexual Abuse/Trauma History: Denies Vital Signs: Vital Signs - 24 hr 03/27/17 03/27/17 03/27/17 00:31 03:30 06:53 Temperature 97.8 F Pulse Rate 70 Respiratory 18 18 16 Rate Blood Pressure 98/63 Allergies/Adverse Reactions: Allergies Allergy/AdvReac Type Severity Reaction Status Date / Time No Known Allergies Allergy Verified 03/26/17 15:05 Concur with the findings of this exam: Yes - Substance Abuse/Tx History Hx Alcohol Use: Yes Hx Substance Use: Yes Substance Use Type: Alcohol (age of first use 11, daily 2pint of wiskey, 3-6 pkc of beer), Heroin (10-15 bags daily ) Hx Substance Use Treatment: Yes Mental Status Exam - Mental Status Exam Alert and Oriented to: Time, Place, Person Cognitive Function: Grossly Intact Patient Appearance: Unkempt Mood: Angry, Hostile, Irritable Affect: Mood Congruent Patient Behavior: Appropriate, Cooperative Speech Pattern: Clear, Appropriate Voice Loudness: Normal Thought Process: Goal Oriented Thought Disorder: Not Present Hallucinations: Denies Suicidal Ideation: Denies Homicidal Ideation: Denies Insight/Judgement: Fair Sleep: Poorly, Difficulty falling asleep Appetite: Fair Muscle strength/Tone: Normal Gait/Station: Other (wa;ls with cane) Psychiatric Findings - Problem List ([place] 1, 2,3) (1) Alcohol dependence Current Visit: Yes Status: Acute (2) Opioid dependence Current Visit: Yes Status: Acute (3) Drug-induced mood disorder Current Visit: No Status: Acute (4) Insomnia Current Visit: No Status: Acute - Initial Treatment Plan Initial Treatment Plan: Discussed indications and properties of Belsomra , patient agreed to start.
[2017-03-27] MEDS: CYCLOBENZAPRINE HCL 10 MG TABLET (FP) PO SCH ×2 (14:23→21:51)
[2017-03-27] MEDS: PANTOPRAZOLE 40 MG TABLET (FP) PO SCH (14:23)
[2017-03-27] MEDS: NAPROXEN 500 MG TABLET (FP) PO SCH ×2 (14:23→21:52)
[2017-03-27] MEDS: GABAPENTIN 100 MG CAPSULE (FP) PO SCH ×2 (14:23→21:52)
[2017-03-27] MEDS: LIDOCAINE 5% TOPICAL PATCH TP SCH (14:24)
[2017-03-27] MEDS: THIAMINE HCL 100 MG TABLET (FP) PO SCH (21:51)
[2017-03-27] MEDS: SUVOREXANT 10 MG TABLET PO SCH (21:52)
[2017-03-27] MEDS: LIDOCAINE PATCH REMOVAL MC SCH (22:09)
[2017-03-28] MEDS: GABAPENTIN 100 MG CAPSULE (FP) PO SCH ×3 (06:38→21:24)
[2017-03-28] MEDS: CYCLOBENZAPRINE HCL 10 MG TABLET (FP) PO SCH ×3 (06:38→21:24)
[2017-03-28] MEDS: PRENATAL VITAMINS W/ FOLIC ACID TABLET (FP) PO SCH (09:54)
[2017-03-28] MEDS: PANTOPRAZOLE 40 MG TABLET (FP) PO SCH (09:54)
[2017-03-28] MEDS: NAPROXEN 500 MG TABLET (FP) PO SCH ×2 (09:54→21:24)
[2017-03-28] MEDS: LIDOCAINE 5% TOPICAL PATCH TP SCH (09:55)
[2017-03-28] MEDS: NICOTINE 21 MG/24 HOURS TOPICAL PATCH TD SCH (09:55)
[2017-03-28 10:20] LABS: INR 0.87 (0.82-1.09); PROTHROMBIN TIME (PATIENT) 9.8 SEC (9.98-11.88)
[2017-03-28 10:21] LABS: ALBUMIN 3.4 g/dl (3.4-5.0); ANION GAP 9 (8-16); BLOOD UREA NITROGEN 26 mg/dL (7-18); CALCIUM 9.1 mg/dL (8.5-10.1); CHLORIDE 100 mmol/L (98-107); CO2 31 mmol/L (21-32); CREATININE 1.1 mg/dL (0.7-1.3); GLUCOSE,RANDOM 103 mg/dL (74-106); POTASSIUM 4.6 mmol/L (3.5-5.1); SGOT/AST 105 U/L (15-37); SGPT/ALT 176 U/L (12-78); SODIUM 140 mmol/L (136-145)
[2017-03-28 10:23] LABS: ALK PHOS 68 U/L (45-117); BILIRUBIN,TOTAL 0.5 mg/dL (0.2-1.0); TOT PROT 6.6 g/dl (6.4-8.2)
--- NOTE | 2017-03-28 11:24 | PN ---
[facility] Progress Note Note: Laboratory Tests 03/28/17 03/28/17 03/28/17 07:30 07:30 07:30 PT with INR 9.80 L INR 0.87 Sodium 140 Potassium 4.6 Chloride 100 Carbon Dioxide 31 Anion Gap 9 BUN 26 H D Creatinine 1.1 Creat Clearance w eGFR > 60 Random Glucose 103 Calcium 9.1 Total Bilirubin 0.5 D AST 105 H D ALT 176 H D Alkaline Phosphatase 68 Total Protein 6.6 Albumin 3.4 D Lipase 107 normal lipase, lfts improved, pt inr stable cont clinical eval
[2017-03-28] MEDS: THIAMINE HCL 100 MG TABLET (FP) PO SCH (21:24)
[2017-03-28] MEDS: SUVOREXANT 10 MG TABLET PO SCH (21:24)
[2017-03-28] MEDS: LIDOCAINE PATCH REMOVAL MC SCH (21:25)
[2017-03-29] MEDS: CYCLOBENZAPRINE HCL 10 MG TABLET (FP) PO SCH ×3 (06:25→21:04)
[2017-03-29] MEDS: GABAPENTIN 100 MG CAPSULE (FP) PO SCH ×3 (06:25→21:04)
[2017-03-29] MEDS: PRENATAL VITAMINS W/ FOLIC ACID TABLET (FP) PO SCH (09:34)
[2017-03-29] MEDS: PANTOPRAZOLE 40 MG TABLET (FP) PO SCH (09:34)
[2017-03-29] MEDS: NAPROXEN 500 MG TABLET (FP) PO SCH ×2 (09:34→21:04)
[2017-03-29] MEDS: LIDOCAINE 5% TOPICAL PATCH TP SCH (09:35)
[2017-03-29] MEDS: NICOTINE 21 MG/24 HOURS TOPICAL PATCH TD SCH (09:35)
[2017-03-29] MEDS: SUVOREXANT 10 MG TABLET PO SCH (21:04)
[2017-03-29] MEDS: THIAMINE HCL 100 MG TABLET (FP) PO SCH (21:04)
[2017-03-29] MEDS: LIDOCAINE PATCH REMOVAL MC SCH (21:05)
[2017-03-30] MEDS: GABAPENTIN 100 MG CAPSULE (FP) PO SCH ×3 (06:32→21:05)
[2017-03-30] MEDS: CYCLOBENZAPRINE HCL 10 MG TABLET (FP) PO SCH ×3 (06:32→21:05)
[2017-03-30] MEDS: PRENATAL VITAMINS W/ FOLIC ACID TABLET (FP) PO SCH (09:38)
[2017-03-30] MEDS: NICOTINE 21 MG/24 HOURS TOPICAL PATCH TD SCH (09:39)
[2017-03-30] MEDS: PANTOPRAZOLE 40 MG TABLET (FP) PO SCH (09:39)
[2017-03-30] MEDS: LIDOCAINE 5% TOPICAL PATCH TP SCH (09:39)
[2017-03-30] MEDS: NAPROXEN 500 MG TABLET (FP) PO SCH ×2 (09:39→21:05)
[2017-03-30] MEDS: THIAMINE HCL 100 MG TABLET (FP) PO SCH (21:05)
[2017-03-30] MEDS: SUVOREXANT 10 MG TABLET PO SCH (21:05)
[2017-03-30] MEDS: LIDOCAINE PATCH REMOVAL MC SCH (21:06)
[2017-03-31] MEDS: CYCLOBENZAPRINE HCL 10 MG TABLET (FP) PO SCH ×3 (06:40→21:03)
[2017-03-31] MEDS: GABAPENTIN 100 MG CAPSULE (FP) PO SCH ×3 (06:40→21:03)
[2017-03-31] MEDS: PRENATAL VITAMINS W/ FOLIC ACID TABLET (FP) PO SCH (09:52)
[2017-03-31] MEDS: NAPROXEN 500 MG TABLET (FP) PO SCH ×2 (09:52→21:03)
[2017-03-31] MEDS: PANTOPRAZOLE 40 MG TABLET (FP) PO SCH (09:52)
[2017-03-31] MEDS: LIDOCAINE 5% TOPICAL PATCH TP SCH (09:52)
[2017-03-31] MEDS: NICOTINE 21 MG/24 HOURS TOPICAL PATCH TD SCH (09:53)
[2017-03-31] MEDS: SUVOREXANT 10 MG TABLET PO SCH (21:03)
[2017-03-31] MEDS: THIAMINE HCL 100 MG TABLET (FP) PO SCH (21:04)
[2017-03-31] MEDS: LIDOCAINE PATCH REMOVAL MC SCH (21:04)
[2017-04-01] MEDS: CYCLOBENZAPRINE HCL 10 MG TABLET (FP) PO SCH ×3 (06:24→21:04)
[2017-04-01] MEDS: GABAPENTIN 100 MG CAPSULE (FP) PO SCH ×3 (06:24→21:04)
[2017-04-01] MEDS: LIDOCAINE 5% TOPICAL PATCH TP SCH (09:48)
[2017-04-01] MEDS: PANTOPRAZOLE 40 MG TABLET (FP) PO SCH (09:48)
[2017-04-01] MEDS: NICOTINE 21 MG/24 HOURS TOPICAL PATCH TD SCH (09:48)
[2017-04-01] MEDS: NAPROXEN 500 MG TABLET (FP) PO SCH ×2 (09:48→21:04)
[2017-04-01] MEDS: PRENATAL VITAMINS W/ FOLIC ACID TABLET (FP) PO SCH (09:48)
--- NOTE | 2017-04-01 15:11 | PN ---
Psychiatric Progress Note Vital Signs: Vital Signs Period Temp Pulse Resp BP Sys/Murray Pulse Ox Last 24 Hr 98.1 F 72 16-18 125/69 Date of Session: 04/01/17 Chief Complaint:: progress update HPI: Patient is addressing alcohol, opioid dependence comorbid subsatnce induced mood disorder. ROS: history of falls and Hep B, pancreatitis, Current Medications: Active Medications Generic Name Dose Route Start Last Admin Trade Name Freq PRN Reason Stop Dose Admin Acetaminophen 650 mg 03/26/17 14:40 Tylenol - PO Q4H PRN FEVER OR PAIN Al Hydroxide/Mg Hydroxide 30 ml 03/26/17 14:40 Mylanta Oral Suspension - PO Q6H PRN DYSPEPSIA Cyclobenzaprine HCl 10 mg 03/27/17 14:00 04/01/17 13:54 Flexeril - PO 10 mg TID JUN Administration Eucalyptus/Menthol/Phenol/Sorbitol 1 each 03/26/17 14:40 Cepastat Lozenge - MM Q4H PRN SORE THROAT Gabapentin 200 mg 04/01/17 15:04 Neurontin - PO TID JUN Guaifenesin 10 ml 03/26/17 14:40 Robitussin Dm - PO Q6H PRN COUGH Lidocaine 1 patch 03/27/17 13:40 04/01/17 09:48 Lidoderm Patch - TP Not Given DAILY [facility] Loperamide HCl 4 mg 03/26/17 14:40 Imodium - PO Q6H PRN DIARRHEA Magnesium Citrate 300 ml 03/26/17 14:40 Citroma - PO Q48H PRN CONSTIPATION Magnesium Hydroxide 30 ml 03/26/17 14:40 Milk Of Magnesia - PO DAILY PRN CONSTIPATION Miscellaneous 1 each 03/27/17 22:00 03/31/17 21:04 Lidoderm Patch Removal MC Not Given DAILY@2200 JUN Naproxen 500 mg 03/27/17 13:40 04/01/17 09:48 Naprosyn - PO 500 mg BID JUN Administration Nicotine 21 mg 03/27/17 10:00 04/01/17 09:48 Nicoderm Patch - TD Not Given DAILY [facility] Nicotine Polacrilex 2 mg 03/26/17 14:40 Nicorette Gum - BUC Q2H PRN NICOTINE REPLACEMENT RX Pantoprazole Sodium 40 mg 03/27/17 13:40 04/01/17 09:48 Protonix - PO 40 mg DAILY JUN Administration Multivit/Folic Acid/Iron 1 tab 03/27/17 10:00 04/01/17 09:48 Vitamins (Sjr) - PO 1 tab DAILY JUN Administration Pseudoephedrine/Triprolidine 1 combo 03/26/17 14:40 Actifed - PO TID PRN NASAL CONGESTION Quetiapine Fumarate 50 mg 04/01/17 22:00 Seroquel - PO HS JUN Thiamine HCl 100 mg 03/26/17 22:00 03/31/17 21:04 Vitamin B1 - PO 100 mg HS JUN Administration Current Side Effect: No Lab tests ordered: No Lab tests reviewed: Yes Provider note:: Patient was seen today, reports has been feeling very iritable, easilly aggravated, unable to sleep, having racing thoughts, unable to focus, reports past history of treatment with depakote and seroquel, with fair responce. Reviewed current mediucations with the patient on Gabapentin 100 mg po tid started by , will increase 200 mg po tid and add Seroquel 50 mg po hs, emotional supports provided, continue to monitor progress. Total face to face time:: 30 Mental Status Exam - Mental Status Exam Alert and Oriented to: Time, Place, Person Cognitive Function: Good Patient Appearance: Well Groomed Mood: Angry, Sad, Anxious, Irritable Affect: Appropriate, Mood Congruent Patient Behavior: Appropriate, Cooperative Speech Pattern: Clear, Appropriate Voice Loudness: Normal Thought Process: Intact, Goal Oriented Thought Disorder: Not Present Hallucinations: Denies Suicidal Ideation: Denies Homicidal Ideation: Denies Insight/Judgement: Fair Sleep: Poorly, Difficulty falling asleep Appetite: Fair Muscle strength/Tone: Normal Gait/Station: Normal Psychiatric Treatment Plan - Problem List (1) Alcohol dependence Current Visit: Yes (2) Opioid dependence Current Visit: Yes (3) Drug-induced mood disorder Current Visit: No (4) Insomnia Current Visit: No
[2017-04-01] MEDS: THIAMINE HCL 100 MG TABLET (FP) PO SCH (21:04)
[2017-04-01] MEDS: LIDOCAINE PATCH REMOVAL MC SCH (21:06)
[2017-04-01] MEDS: SUVOREXANT 10 MG TABLET PO SCH (21:06)
[2017-04-01] MEDS: QUEtiapine FUMARATE 50 MG TABLET PO SCH (21:07)
[2017-04-02] MEDS: CYCLOBENZAPRINE HCL 10 MG TABLET (FP) PO SCH ×3 (06:13→21:19)
[2017-04-02] MEDS: GABAPENTIN 100 MG CAPSULE (FP) PO SCH ×3 (06:13→21:19)
[2017-04-02] MEDS: PANTOPRAZOLE 40 MG TABLET (FP) PO SCH (09:51)
[2017-04-02] MEDS: LIDOCAINE 5% TOPICAL PATCH TP SCH (09:51)
[2017-04-02] MEDS: NAPROXEN 500 MG TABLET (FP) PO SCH ×2 (09:51→21:19)
[2017-04-02] MEDS: NICOTINE 21 MG/24 HOURS TOPICAL PATCH TD SCH (09:51)
[2017-04-02] MEDS: PRENATAL VITAMINS W/ FOLIC ACID TABLET (FP) PO SCH (09:51)
--- NOTE | 2017-04-02 14:49 | PN ---
[facility] Progress Note (SOAP) Subjective: asking to review bloodwork Objective: 04/02/17 14:47 Vital Signs - 24 hr 04/02/17 04/02/17 03:30 06:39 Temperature 98.1 F Pulse Rate 74 Respiratory 16 16 Rate Blood Pressure 112/70 Laboratory Tests 03/28/17 03/28/17 03/28/17 07:30 07:30 07:30 PT with INR 9.80 L INR 0.87 Sodium 140 Potassium 4.6 Chloride 100 Carbon Dioxide 31 Anion Gap 9 BUN 26 H D Creatinine 1.1 Creat Clearance w eGFR > 60 Random Glucose 103 Calcium 9.1 Total Bilirubin 0.5 D AST 105 H D ALT 176 H D Alkaline Phosphatase 68 Total Protein 6.6 Albumin 3.4 D Lipase 107 labwork is normalizing, recommned f/u with PCP 1 month after discharge to repeat alllabwork and to d/c alcohol and other illicit drug consumption,. Assessment: 04/02/17 14:48 dehydration, hepatitis 2/2 alcohol use.
[2017-04-02] MEDS: LIDOCAINE PATCH REMOVAL MC SCH (21:19)
[2017-04-02] MEDS: THIAMINE HCL 100 MG TABLET (FP) PO SCH (21:19)
[2017-04-02] MEDS: QUEtiapine FUMARATE 50 MG TABLET PO SCH (21:19)
[2017-04-02] MEDS: SUVOREXANT 10 MG TABLET PO SCH (21:20)
[2017-04-02] MEDS: SENNOSIDES 8.6MG TABLET (FP) PO SCH (21:21)
[2017-04-02] MEDS: DOCUSATE SODIUM 100 MG CAPSULE (FP) PO SCH (21:21)
[2017-04-03] MEDS: GABAPENTIN 100 MG CAPSULE (FP) PO SCH ×3 (06:13→21:09)
[2017-04-03] MEDS: CYCLOBENZAPRINE HCL 10 MG TABLET (FP) PO SCH ×3 (06:13→21:09)
[2017-04-03] MEDS: PANTOPRAZOLE 40 MG TABLET (FP) PO SCH (09:49)
[2017-04-03] MEDS: NAPROXEN 500 MG TABLET (FP) PO SCH ×2 (09:49→22:01)
[2017-04-03] MEDS: PRENATAL VITAMINS W/ FOLIC ACID TABLET (FP) PO SCH (09:49)
[2017-04-03] MEDS: LIDOCAINE 5% TOPICAL PATCH TP SCH (09:49)
[2017-04-03] MEDS: NICOTINE 21 MG/24 HOURS TOPICAL PATCH TD SCH (09:49)
[2017-04-03] MEDS: SENNOSIDES 8.6MG TABLET (FP) PO SCH (21:09)
[2017-04-03] MEDS: QUEtiapine FUMARATE 50 MG TABLET PO SCH (21:09)
[2017-04-03] MEDS: THIAMINE HCL 100 MG TABLET (FP) PO SCH (21:09)
[2017-04-03] MEDS: DOCUSATE SODIUM 100 MG CAPSULE (FP) PO SCH (21:09)
[2017-04-03] MEDS: LIDOCAINE PATCH REMOVAL MC SCH (21:44)
[2017-04-04] MEDS: GABAPENTIN 100 MG CAPSULE (FP) PO SCH ×3 (06:09→21:23)
[2017-04-04] MEDS: CYCLOBENZAPRINE HCL 10 MG TABLET (FP) PO SCH ×3 (06:09→21:12)
[2017-04-04] MEDS: PRENATAL VITAMINS W/ FOLIC ACID TABLET (FP) PO SCH (09:45)
[2017-04-04] MEDS: PANTOPRAZOLE 40 MG TABLET (FP) PO SCH (09:45)
[2017-04-04] MEDS: NAPROXEN 500 MG TABLET (FP) PO SCH ×2 (09:45→21:12)
[2017-04-04] MEDS: LIDOCAINE 5% TOPICAL PATCH TP SCH (09:45)
[2017-04-04] MEDS: NICOTINE 21 MG/24 HOURS TOPICAL PATCH TD SCH (09:45)
[2017-04-04] MEDS: DOCUSATE SODIUM 100 MG CAPSULE (FP) PO SCH (21:12)
[2017-04-04] MEDS: QUEtiapine FUMARATE 50 MG TABLET PO SCH (21:12)
[2017-04-04] MEDS: SENNOSIDES 8.6MG TABLET (FP) PO SCH (21:12)
[2017-04-04] MEDS: THIAMINE HCL 100 MG TABLET (FP) PO SCH (21:13)
[2017-04-04] MEDS: LIDOCAINE PATCH REMOVAL MC SCH (21:13)
[2017-04-05] MEDS: GABAPENTIN 100 MG CAPSULE (FP) PO SCH ×3 (06:30→21:12)
[2017-04-05] MEDS: CYCLOBENZAPRINE HCL 10 MG TABLET (FP) PO SCH ×3 (06:30→21:11)
[2017-04-05] MEDS: NAPROXEN 500 MG TABLET (FP) PO SCH ×2 (09:30→21:11)
[2017-04-05] MEDS: LIDOCAINE 5% TOPICAL PATCH TP SCH (09:30)
[2017-04-05] MEDS: NICOTINE 21 MG/24 HOURS TOPICAL PATCH TD SCH (09:30)
[2017-04-05] MEDS: PRENATAL VITAMINS W/ FOLIC ACID TABLET (FP) PO SCH (09:30)
[2017-04-05] MEDS: PANTOPRAZOLE 40 MG TABLET (FP) PO SCH (09:30)
[2017-04-05] MEDS: QUEtiapine FUMARATE 50 MG TABLET PO SCH (21:11)
[2017-04-05] MEDS: THIAMINE HCL 100 MG TABLET (FP) PO SCH (21:11)
[2017-04-05] MEDS: DOCUSATE SODIUM 100 MG CAPSULE (FP) PO SCH (21:11)
[2017-04-05] MEDS: SENNOSIDES 8.6MG TABLET (FP) PO SCH (21:12)
[2017-04-05] MEDS: LIDOCAINE PATCH REMOVAL MC SCH (21:24)
[2017-04-06] MEDS: GABAPENTIN 100 MG CAPSULE (FP) PO SCH ×3 (06:41→21:08)
[2017-04-06] MEDS: CYCLOBENZAPRINE HCL 10 MG TABLET (FP) PO SCH ×3 (06:41→21:09)
[2017-04-06] MEDS: NICOTINE 21 MG/24 HOURS TOPICAL PATCH TD SCH (09:26)
[2017-04-06] MEDS: NAPROXEN 500 MG TABLET (FP) PO SCH ×2 (09:26→21:08)
[2017-04-06] MEDS: PANTOPRAZOLE 40 MG TABLET (FP) PO SCH (09:26)
[2017-04-06] MEDS: PRENATAL VITAMINS W/ FOLIC ACID TABLET (FP) PO SCH (09:26)
[2017-04-06] MEDS: LIDOCAINE 5% TOPICAL PATCH TP SCH (09:26)
[2017-04-06] MEDS: THIAMINE HCL 100 MG TABLET (FP) PO SCH (21:08)
[2017-04-06] MEDS: SENNOSIDES 8.6MG TABLET (FP) PO SCH (21:08)
[2017-04-06] MEDS: QUEtiapine FUMARATE 50 MG TABLET PO SCH (21:09)
[2017-04-06] MEDS: LIDOCAINE PATCH REMOVAL MC SCH (21:09)
[2017-04-06] MEDS: DOCUSATE SODIUM 100 MG CAPSULE (FP) PO SCH (21:09)
[2017-04-07] MEDS: GABAPENTIN 100 MG CAPSULE (FP) PO SCH ×3 (06:37→21:06)
[2017-04-07] MEDS: CYCLOBENZAPRINE HCL 10 MG TABLET (FP) PO SCH ×3 (06:37→21:06)
[2017-04-07] MEDS: PANTOPRAZOLE 40 MG TABLET (FP) PO SCH (09:35)
[2017-04-07] MEDS: NAPROXEN 500 MG TABLET (FP) PO SCH ×2 (09:35→21:06)
[2017-04-07] MEDS: PRENATAL VITAMINS W/ FOLIC ACID TABLET (FP) PO SCH (09:35)
[2017-04-07] MEDS: LIDOCAINE 5% TOPICAL PATCH TP SCH (09:36)
[2017-04-07] MEDS: NICOTINE 21 MG/24 HOURS TOPICAL PATCH TD SCH (09:36)
[2017-04-07] MEDS: QUEtiapine FUMARATE 50 MG TABLET PO SCH (21:06)
[2017-04-07] MEDS: THIAMINE HCL 100 MG TABLET (FP) PO SCH (21:06)
[2017-04-07] MEDS: SENNOSIDES 8.6MG TABLET (FP) PO SCH (21:07)
[2017-04-07] MEDS: LIDOCAINE PATCH REMOVAL MC SCH (21:08)
[2017-04-07] MEDS: DOCUSATE SODIUM 100 MG CAPSULE (FP) PO SCH (21:08)
[2017-04-08] MEDS: GABAPENTIN 100 MG CAPSULE (FP) PO SCH ×3 (06:33→21:07)
[2017-04-08] MEDS: CYCLOBENZAPRINE HCL 10 MG TABLET (FP) PO SCH ×3 (06:34→21:06)
[2017-04-08] MEDS: PANTOPRAZOLE 40 MG TABLET (FP) PO SCH (10:01)
[2017-04-08] MEDS: NICOTINE 21 MG/24 HOURS TOPICAL PATCH TD SCH (10:01)
[2017-04-08] MEDS: NAPROXEN 500 MG TABLET (FP) PO SCH ×2 (10:01→21:06)
[2017-04-08] MEDS: PRENATAL VITAMINS W/ FOLIC ACID TABLET (FP) PO SCH (10:01)
[2017-04-08] MEDS: LIDOCAINE 5% TOPICAL PATCH TP SCH (10:01)
[2017-04-08] MEDS: THIAMINE HCL 100 MG TABLET (FP) PO SCH (21:06)
[2017-04-08] MEDS: QUEtiapine FUMARATE 50 MG TABLET PO SCH (21:06)
[2017-04-08] MEDS: DOCUSATE SODIUM 100 MG CAPSULE (FP) PO SCH (21:07)
[2017-04-08] MEDS: SENNOSIDES 8.6MG TABLET (FP) PO SCH (21:07)
[2017-04-08] MEDS: LIDOCAINE PATCH REMOVAL MC SCH (21:07)
[2017-04-09] MEDS: CYCLOBENZAPRINE HCL 10 MG TABLET (FP) PO SCH ×3 (06:28→21:03)
[2017-04-09] MEDS: GABAPENTIN 100 MG CAPSULE (FP) PO SCH ×3 (06:28→21:03)
[2017-04-09] MEDS: LIDOCAINE 5% TOPICAL PATCH TP SCH (09:33)
[2017-04-09] MEDS: PRENATAL VITAMINS W/ FOLIC ACID TABLET (FP) PO SCH (09:33)
[2017-04-09] MEDS: NICOTINE 21 MG/24 HOURS TOPICAL PATCH TD SCH (09:33)
[2017-04-09] MEDS: NAPROXEN 500 MG TABLET (FP) PO SCH ×2 (09:33→21:03)
[2017-04-09] MEDS: PANTOPRAZOLE 40 MG TABLET (FP) PO SCH (09:33)
[2017-04-09] MEDS: SENNOSIDES 8.6MG TABLET (FP) PO SCH (21:03)
[2017-04-09] MEDS: THIAMINE HCL 100 MG TABLET (FP) PO SCH (21:03)
[2017-04-09] MEDS: QUEtiapine FUMARATE 50 MG TABLET PO SCH (21:03)
[2017-04-09] MEDS: DOCUSATE SODIUM 100 MG CAPSULE (FP) PO SCH (21:03)
[2017-04-09] MEDS: LIDOCAINE PATCH REMOVAL MC SCH (21:04)
[2017-04-10] MEDS: CYCLOBENZAPRINE HCL 10 MG TABLET (FP) PO SCH ×3 (06:05→21:05)
[2017-04-10] MEDS: GABAPENTIN 100 MG CAPSULE (FP) PO SCH (06:05)
[2017-04-10] MEDS: PRENATAL VITAMINS W/ FOLIC ACID TABLET (FP) PO SCH (10:04)
[2017-04-10] MEDS: PANTOPRAZOLE 40 MG TABLET (FP) PO SCH (10:04)
[2017-04-10] MEDS: NAPROXEN 500 MG TABLET (FP) PO SCH ×2 (10:04→21:05)
[2017-04-10] MEDS: LIDOCAINE 5% TOPICAL PATCH TP SCH (10:05)
[2017-04-10] MEDS: NICOTINE 21 MG/24 HOURS TOPICAL PATCH TD SCH (10:05)
--- NOTE | 2017-04-10 13:51 | PN ---
Psychiatric Progress Note Vital Signs: Vital Signs Period Temp Pulse Resp BP Sys/Murray Pulse Ox Last 24 Hr 98.3 F 71 18-18 127/76 Date of Session: 04/10/17 Chief Complaint:: anxiety HPI: Patient is addressing alcohol, opioid dependence comorbid subsatnce induced mood disorder. ROS: history of falls and Hep B, pancreatitis, Current Medications: Active Medications Generic Name Dose Route Start Last Admin Trade Name Freq PRN Reason Stop Dose Admin Acetaminophen 650 mg 03/26/17 14:40 Tylenol - PO Q4H PRN FEVER OR PAIN Al Hydroxide/Mg Hydroxide 30 ml 03/26/17 14:40 Mylanta Oral Suspension - PO Q6H PRN DYSPEPSIA Cyclobenzaprine HCl 10 mg 03/27/17 14:00 04/10/17 06:05 Flexeril - PO 10 mg TID JUN Administration Docusate Sodium 300 mg 04/02/17 22:00 04/09/17 21:03 Colace - PO 300 mg HS JUN Administration Eucalyptus/Menthol/Phenol/Sorbitol 1 each 03/26/17 14:40 Cepastat Lozenge - MM Q4H PRN SORE THROAT Gabapentin 200 mg 04/01/17 15:04 04/10/17 06:05 Neurontin - PO 200 mg TID JUN Administration Guaifenesin 10 ml 03/26/17 14:40 Robitussin Dm - PO Q6H PRN COUGH Lidocaine 1 patch 03/27/17 13:40 04/10/17 10:05 Lidoderm Patch - TP Not Given DAILY JUN Loperamide HCl 4 mg 03/26/17 14:40 Imodium - PO Q6H PRN DIARRHEA Magnesium Citrate 300 ml 03/26/17 14:40 Citroma - PO Q48H PRN CONSTIPATION Magnesium Hydroxide 30 ml 03/26/17 14:40 Milk Of Magnesia - PO DAILY PRN CONSTIPATION Miscellaneous 1 each 03/27/17 22:00 04/09/17 21:04 Lidoderm Patch Removal MC Not Given DAILY@2200 JUN Naproxen 500 mg 03/27/17 13:40 04/10/17 10:04 Naprosyn - PO 500 mg BID JUN Administration Nicotine 21 mg 03/27/17 10:00 04/10/17 10:05 Nicoderm Patch - TD Not Given DAILY JUN Nicotine Polacrilex 2 mg 03/26/17 14:40 Nicorette Gum - BUC Q2H PRN NICOTINE REPLACEMENT RX Pantoprazole Sodium 40 mg 03/27/17 13:40 04/10/17 10:04 Protonix - PO 40 mg DAILY JUN Administration Multivit/Folic Acid/Iron 1 tab 03/27/17 10:00 04/10/17 10:04 Vitamins (Sjr) - PO 1 tab DAILY JUN Administration Pseudoephedrine/Triprolidine 1 combo 03/26/17 14:40 Actifed - PO TID PRN NASAL CONGESTION Quetiapine Fumarate 50 mg 04/01/17 22:00 04/09/17 21:03 Seroquel - PO 50 mg HS JUN Administration Senna 2 tab 04/02/17 22:00 04/09/17 21:03 Senna - PO 2 tab HS JUN Administration Thiamine HCl 100 mg 03/26/17 22:00 04/09/17 21:03 Vitamin B1 - PO 100 mg HS JUN Administration Current Side Effect: No Lab tests ordered: No Lab tests reviewed: Yes Provider note:: Patient reports he has been feeling depressed, irritable, isolative, mood swings and difficlty to control his angre, he noticed that medication he started partially effective, no side-effetcs reported, session was focus on psycheducation and supports. Patient reported past treatment with depakote, reviewed current medications with the patient, discussed indications and properties each of them, discussed treatment plan, increase gabapentin 300 mg po tid, add seroquel 50 mg am and will increase hs seroquel to 100 mg po hs , continue to monitor progress. Total face to face time:: 35 Mental Status Exam - Mental Status Exam Alert and Oriented to: Time, Place, Person Cognitive Function: Good Patient Appearance: Well Groomed Mood: Sad, Anxious, Irritable Affect: Mood Congruent, Constricted Patient Behavior: Cooperative Speech Pattern: Clear Voice Loudness: Normal Thought Process: Intact, Goal Oriented Thought Disorder: Not Present Hallucinations: Denies Suicidal Ideation: Denies Homicidal Ideation: Denies Insight/Judgement: Fair Sleep: Fair Appetite: Good Muscle strength/Tone: Normal Gait/Station: Normal Psychiatric Treatment Plan - Problem List (1) Alcohol dependence Current Visit: Yes (2) Opioid dependence Current Visit: Yes (3) Drug-induced mood disorder Current Visit: No (4) Insomnia Current Visit: No
[2017-04-10] MEDS: GABAPENTIN 300 MG CAPSULE (FP) PO SCH ×2 (14:14→21:05)
[2017-04-10] MEDS: DOCUSATE SODIUM 100 MG CAPSULE (FP) PO SCH (21:05)
[2017-04-10] MEDS: THIAMINE HCL 100 MG TABLET (FP) PO SCH (21:05)
[2017-04-10] MEDS: LIDOCAINE PATCH REMOVAL MC SCH (21:05)
[2017-04-10] MEDS: SENNOSIDES 8.6MG TABLET (FP) PO SCH (21:05)
[2017-04-10] MEDS: QUEtiapine FUMARATE 100 MG TABLET (FP) PO SCH (21:06)
[2017-04-11] MEDS: CYCLOBENZAPRINE HCL 10 MG TABLET (FP) PO SCH ×3 (06:25→21:27)
[2017-04-11] MEDS: GABAPENTIN 300 MG CAPSULE (FP) PO SCH ×3 (06:25→21:27)
[2017-04-11] MEDS: NAPROXEN 500 MG TABLET (FP) PO SCH ×2 (09:42→21:27)
[2017-04-11] MEDS: PANTOPRAZOLE 40 MG TABLET (FP) PO SCH (09:42)
[2017-04-11] MEDS: NICOTINE 21 MG/24 HOURS TOPICAL PATCH TD SCH (09:42)
[2017-04-11] MEDS: PRENATAL VITAMINS W/ FOLIC ACID TABLET (FP) PO SCH (09:42)
[2017-04-11] MEDS: QUEtiapine FUMARATE 50 MG TABLET PO SCH (09:42)
[2017-04-11] MEDS: LIDOCAINE 5% TOPICAL PATCH TP SCH (09:42)
[2017-04-11] MEDS: SENNOSIDES 8.6MG TABLET (FP) PO SCH (21:27)
[2017-04-11] MEDS: THIAMINE HCL 100 MG TABLET (FP) PO SCH (21:27)
[2017-04-11] MEDS: DOCUSATE SODIUM 100 MG CAPSULE (FP) PO SCH (21:27)
[2017-04-11] MEDS: QUEtiapine FUMARATE 100 MG TABLET (FP) PO SCH (21:29)
[2017-04-11] MEDS: LIDOCAINE PATCH REMOVAL MC SCH (21:29)
[2017-04-12] MEDS: CYCLOBENZAPRINE HCL 10 MG TABLET (FP) PO SCH ×3 (06:31→21:06)
[2017-04-12] MEDS: GABAPENTIN 300 MG CAPSULE (FP) PO SCH ×3 (06:31→21:06)
[2017-04-12] MEDS: QUEtiapine FUMARATE 50 MG TABLET PO SCH (09:49)
[2017-04-12] MEDS: PRENATAL VITAMINS W/ FOLIC ACID TABLET (FP) PO SCH (09:49)
[2017-04-12] MEDS: NICOTINE 21 MG/24 HOURS TOPICAL PATCH TD SCH (09:49)
[2017-04-12] MEDS: LIDOCAINE 5% TOPICAL PATCH TP SCH (09:49)
[2017-04-12] MEDS: PANTOPRAZOLE 40 MG TABLET (FP) PO SCH (09:49)
[2017-04-12] MEDS: NAPROXEN 500 MG TABLET (FP) PO SCH ×2 (09:49→21:06)
[2017-04-12] MEDS: MAG HYDROX/AL HYDROX/SIMETH 30 ML UNIT-DOSE CUP PO PRN (16:04)
[2017-04-12] MEDS: SENNOSIDES 8.6MG TABLET (FP) PO SCH (21:06)
[2017-04-12] MEDS: DOCUSATE SODIUM 100 MG CAPSULE (FP) PO SCH (21:06)
[2017-04-12] MEDS: QUEtiapine FUMARATE 100 MG TABLET (FP) PO SCH (21:06)
[2017-04-12] MEDS: THIAMINE HCL 100 MG TABLET (FP) PO SCH (21:06)
[2017-04-12] MEDS: LIDOCAINE PATCH REMOVAL MC SCH (21:07)
[2017-04-13] MEDS: GABAPENTIN 300 MG CAPSULE (FP) PO SCH ×3 (06:24→21:04)
[2017-04-13] MEDS: CYCLOBENZAPRINE HCL 10 MG TABLET (FP) PO SCH ×3 (06:24→21:04)
[2017-04-13] MEDS: LIDOCAINE 5% TOPICAL PATCH TP SCH (09:51)
[2017-04-13] MEDS: PRENATAL VITAMINS W/ FOLIC ACID TABLET (FP) PO SCH (09:52)
[2017-04-13] MEDS: NAPROXEN 500 MG TABLET (FP) PO SCH ×2 (09:52→21:04)
[2017-04-13] MEDS: QUEtiapine FUMARATE 50 MG TABLET PO SCH (09:52)
[2017-04-13] MEDS: PANTOPRAZOLE 40 MG TABLET (FP) PO SCH (09:52)
[2017-04-13] MEDS: NICOTINE 21 MG/24 HOURS TOPICAL PATCH TD SCH (09:52)
[2017-04-13] MEDS: THIAMINE HCL 100 MG TABLET (FP) PO SCH (21:04)
[2017-04-13] MEDS: DOCUSATE SODIUM 100 MG CAPSULE (FP) PO SCH (21:04)
[2017-04-13] MEDS: QUEtiapine FUMARATE 100 MG TABLET (FP) PO SCH (21:04)
[2017-04-13] MEDS: SENNOSIDES 8.6MG TABLET (FP) PO SCH (21:04)
[2017-04-13] MEDS: LIDOCAINE PATCH REMOVAL MC SCH (21:04)
[2017-04-14] MEDS: CYCLOBENZAPRINE HCL 10 MG TABLET (FP) PO SCH ×3 (06:46→21:04)
[2017-04-14] MEDS: GABAPENTIN 300 MG CAPSULE (FP) PO SCH ×3 (06:46→21:04)
[2017-04-14] MEDS: PANTOPRAZOLE 40 MG TABLET (FP) PO SCH (09:24)
[2017-04-14] MEDS: QUEtiapine FUMARATE 50 MG TABLET PO SCH (09:24)
[2017-04-14] MEDS: PRENATAL VITAMINS W/ FOLIC ACID TABLET (FP) PO SCH (09:24)
[2017-04-14] MEDS: NAPROXEN 500 MG TABLET (FP) PO SCH ×2 (09:24→21:04)
[2017-04-14] MEDS: NICOTINE 21 MG/24 HOURS TOPICAL PATCH TD SCH (09:25)
[2017-04-14] MEDS: LIDOCAINE 5% TOPICAL PATCH TP SCH (09:25)
[2017-04-14] MEDS: SENNOSIDES 8.6MG TABLET (FP) PO SCH (21:04)
[2017-04-14] MEDS: QUEtiapine FUMARATE 100 MG TABLET (FP) PO SCH (21:04)
[2017-04-14] MEDS: DOCUSATE SODIUM 100 MG CAPSULE (FP) PO SCH (21:04)
[2017-04-14] MEDS: LIDOCAINE PATCH REMOVAL MC SCH (21:05)
[2017-04-14] MEDS: THIAMINE HCL 100 MG TABLET (FP) PO SCH (21:05)
[2017-04-15] MEDS: CYCLOBENZAPRINE HCL 10 MG TABLET (FP) PO SCH ×3 (06:47→21:07)
[2017-04-15] MEDS: GABAPENTIN 300 MG CAPSULE (FP) PO SCH ×3 (06:47→21:07)
[2017-04-15] MEDS: QUEtiapine FUMARATE 50 MG TABLET PO SCH (10:00)
[2017-04-15] MEDS: PANTOPRAZOLE 40 MG TABLET (FP) PO SCH (10:00)
[2017-04-15] MEDS: PRENATAL VITAMINS W/ FOLIC ACID TABLET (FP) PO SCH (10:00)
[2017-04-15] MEDS: NAPROXEN 500 MG TABLET (FP) PO SCH ×2 (10:01→21:07)
[2017-04-15] MEDS: LIDOCAINE 5% TOPICAL PATCH TP SCH (10:01)
[2017-04-15] MEDS: NICOTINE 21 MG/24 HOURS TOPICAL PATCH TD SCH (10:01)
[2017-04-15] MEDS: DOCUSATE SODIUM 100 MG CAPSULE (FP) PO SCH (21:07)
[2017-04-15] MEDS: QUEtiapine FUMARATE 100 MG TABLET (FP) PO SCH (21:07)
[2017-04-15] MEDS: THIAMINE HCL 100 MG TABLET (FP) PO SCH (21:07)
[2017-04-15] MEDS: SENNOSIDES 8.6MG TABLET (FP) PO SCH (21:08)
[2017-04-15] MEDS: LIDOCAINE PATCH REMOVAL MC SCH (21:09)
[2017-04-16] MEDS: GABAPENTIN 300 MG CAPSULE (FP) PO SCH ×3 (06:34→21:14)
[2017-04-16] MEDS: CYCLOBENZAPRINE HCL 10 MG TABLET (FP) PO SCH ×3 (06:34→21:14)
[2017-04-16] MEDS: LIDOCAINE 5% TOPICAL PATCH TP SCH (09:51)
[2017-04-16] MEDS: PRENATAL VITAMINS W/ FOLIC ACID TABLET (FP) PO SCH (09:51)
[2017-04-16] MEDS: QUEtiapine FUMARATE 50 MG TABLET PO SCH (09:51)
[2017-04-16] MEDS: PANTOPRAZOLE 40 MG TABLET (FP) PO SCH (09:51)
[2017-04-16] MEDS: NICOTINE 21 MG/24 HOURS TOPICAL PATCH TD SCH (09:51)
[2017-04-16] MEDS: NAPROXEN 500 MG TABLET (FP) PO SCH ×2 (09:51→21:14)
[2017-04-16] MEDS: MAG HYDROX/AL HYDROX/SIMETH 30 ML UNIT-DOSE CUP PO PRN (16:34)
[2017-04-16] MEDS: DOCUSATE SODIUM 100 MG CAPSULE (FP) PO SCH (21:13)
[2017-04-16] MEDS: SENNOSIDES 8.6MG TABLET (FP) PO SCH (21:14)
[2017-04-16] MEDS: QUEtiapine FUMARATE 100 MG TABLET (FP) PO SCH (21:14)
[2017-04-16] MEDS: LIDOCAINE PATCH REMOVAL MC SCH (21:15)
[2017-04-16] MEDS: THIAMINE HCL 100 MG TABLET (FP) PO SCH (21:15)
[2017-04-17] MEDS: CYCLOBENZAPRINE HCL 10 MG TABLET (FP) PO SCH ×3 (06:07→21:08)
[2017-04-17] MEDS: GABAPENTIN 300 MG CAPSULE (FP) PO SCH ×3 (06:07→21:08)
[2017-04-17] MEDS: LIDOCAINE 5% TOPICAL PATCH TP SCH (09:50)
[2017-04-17] MEDS: NICOTINE 21 MG/24 HOURS TOPICAL PATCH TD SCH (09:50)
[2017-04-17] MEDS: PANTOPRAZOLE 40 MG TABLET (FP) PO SCH (09:50)
[2017-04-17] MEDS: QUEtiapine FUMARATE 50 MG TABLET PO SCH (09:50)
[2017-04-17] MEDS: PRENATAL VITAMINS W/ FOLIC ACID TABLET (FP) PO SCH (09:50)
[2017-04-17] MEDS: NAPROXEN 500 MG TABLET (FP) PO SCH ×2 (09:50→21:08)
[2017-04-17] MEDS: MAG HYDROX/AL HYDROX/SIMETH 30 ML UNIT-DOSE CUP PO PRN (20:05)
[2017-04-17] MEDS: SENNOSIDES 8.6MG TABLET (FP) PO SCH (21:08)
[2017-04-17] MEDS: THIAMINE HCL 100 MG TABLET (FP) PO SCH (21:08)
[2017-04-17] MEDS: QUEtiapine FUMARATE 100 MG TABLET (FP) PO SCH (21:08)
[2017-04-17] MEDS: DOCUSATE SODIUM 100 MG CAPSULE (FP) PO SCH (21:08)
[2017-04-17] MEDS: LIDOCAINE PATCH REMOVAL MC SCH (21:10)
[2017-04-18] MEDS: GABAPENTIN 300 MG CAPSULE (FP) PO SCH ×3 (06:38→21:05)
[2017-04-18] MEDS: CYCLOBENZAPRINE HCL 10 MG TABLET (FP) PO SCH ×3 (06:38→21:05)
[2017-04-18] MEDS: LIDOCAINE 5% TOPICAL PATCH TP SCH (10:12)
[2017-04-18] MEDS: PANTOPRAZOLE 40 MG TABLET (FP) PO SCH (10:13)
[2017-04-18] MEDS: PRENATAL VITAMINS W/ FOLIC ACID TABLET (FP) PO SCH (10:13)
[2017-04-18] MEDS: NICOTINE 21 MG/24 HOURS TOPICAL PATCH TD SCH (10:13)
[2017-04-18] MEDS: QUEtiapine FUMARATE 50 MG TABLET PO SCH (10:14)
[2017-04-18] MEDS: NAPROXEN 500 MG TABLET (FP) PO SCH ×2 (10:14→21:04)
[2017-04-18] MEDS: DOCUSATE SODIUM 100 MG CAPSULE (FP) PO SCH (21:04)
[2017-04-18] MEDS: SENNOSIDES 8.6MG TABLET (FP) PO SCH (21:05)
[2017-04-18] MEDS: THIAMINE HCL 100 MG TABLET (FP) PO SCH (21:05)
[2017-04-18] MEDS: QUEtiapine FUMARATE 100 MG TABLET (FP) PO SCH (21:05)
[2017-04-18] MEDS: LIDOCAINE PATCH REMOVAL MC SCH (21:06)
[2017-04-19] MEDS: GABAPENTIN 300 MG CAPSULE (FP) PO SCH ×3 (06:20→21:11)
[2017-04-19] MEDS: CYCLOBENZAPRINE HCL 10 MG TABLET (FP) PO SCH ×3 (06:20→21:11)
[2017-04-19] MEDS: QUEtiapine FUMARATE 50 MG TABLET PO SCH (09:41)
[2017-04-19] MEDS: PANTOPRAZOLE 40 MG TABLET (FP) PO SCH (09:41)
[2017-04-19] MEDS: PRENATAL VITAMINS W/ FOLIC ACID TABLET (FP) PO SCH (09:41)
[2017-04-19] MEDS: NAPROXEN 500 MG TABLET (FP) PO SCH ×2 (09:41→21:11)
[2017-04-19] MEDS: LIDOCAINE 5% TOPICAL PATCH TP SCH (09:41)
[2017-04-19] MEDS: NICOTINE 21 MG/24 HOURS TOPICAL PATCH TD SCH (09:42)
[2017-04-19] MEDS: SENNOSIDES 8.6MG TABLET (FP) PO SCH (21:11)
[2017-04-19] MEDS: DOCUSATE SODIUM 100 MG CAPSULE (FP) PO SCH (21:11)
[2017-04-19] MEDS: THIAMINE HCL 100 MG TABLET (FP) PO SCH (21:11)
[2017-04-19] MEDS: MAG HYDROX/AL HYDROX/SIMETH 30 ML UNIT-DOSE CUP PO PRN (21:11)
[2017-04-19] MEDS: QUEtiapine FUMARATE 100 MG TABLET (FP) PO SCH (21:11)
[2017-04-19] MEDS: LIDOCAINE PATCH REMOVAL MC SCH (21:13)
[2017-04-20] MEDS: GABAPENTIN 300 MG CAPSULE (FP) PO SCH ×3 (06:39→21:04)
[2017-04-20] MEDS: CYCLOBENZAPRINE HCL 10 MG TABLET (FP) PO SCH ×3 (06:40→21:04)
[2017-04-20] MEDS: NAPROXEN 500 MG TABLET (FP) PO SCH ×2 (09:40→21:04)
[2017-04-20] MEDS: PANTOPRAZOLE 40 MG TABLET (FP) PO SCH (09:40)
[2017-04-20] MEDS: PRENATAL VITAMINS W/ FOLIC ACID TABLET (FP) PO SCH (09:40)
[2017-04-20] MEDS: QUEtiapine FUMARATE 50 MG TABLET PO SCH (09:40)
[2017-04-20] MEDS: NICOTINE 21 MG/24 HOURS TOPICAL PATCH TD SCH (09:40)
[2017-04-20] MEDS: LIDOCAINE 5% TOPICAL PATCH TP SCH (09:40)
[2017-04-20] MEDS: SENNOSIDES 8.6MG TABLET (FP) PO SCH (21:04)
[2017-04-20] MEDS: DOCUSATE SODIUM 100 MG CAPSULE (FP) PO SCH (21:04)
[2017-04-20] MEDS: QUEtiapine FUMARATE 100 MG TABLET (FP) PO SCH (21:04)
[2017-04-20] MEDS: THIAMINE HCL 100 MG TABLET (FP) PO SCH (21:05)
[2017-04-20] MEDS: LIDOCAINE PATCH REMOVAL MC SCH (21:06)
[2017-04-21] MEDS: GABAPENTIN 300 MG CAPSULE (FP) PO SCH ×3 (06:21→21:11)
[2017-04-21] MEDS: CYCLOBENZAPRINE HCL 10 MG TABLET (FP) PO SCH ×3 (06:21→21:11)
[2017-04-21] MEDS: PRENATAL VITAMINS W/ FOLIC ACID TABLET (FP) PO SCH (09:23)
[2017-04-21] MEDS: QUEtiapine FUMARATE 50 MG TABLET PO SCH (09:23)
[2017-04-21] MEDS: PANTOPRAZOLE 40 MG TABLET (FP) PO SCH (09:23)
[2017-04-21] MEDS: LIDOCAINE 5% TOPICAL PATCH TP SCH (09:23)
[2017-04-21] MEDS: NAPROXEN 500 MG TABLET (FP) PO SCH ×2 (09:23→21:11)
[2017-04-21] MEDS: NICOTINE 21 MG/24 HOURS TOPICAL PATCH TD SCH (09:24)
[2017-04-21] MEDS: SENNOSIDES 8.6MG TABLET (FP) PO SCH (21:10)
[2017-04-21] MEDS: DOCUSATE SODIUM 100 MG CAPSULE (FP) PO SCH (21:10)
[2017-04-21] MEDS: QUEtiapine FUMARATE 100 MG TABLET (FP) PO SCH (21:11)
[2017-04-21] MEDS: THIAMINE HCL 100 MG TABLET (FP) PO SCH (21:11)
[2017-04-21] MEDS: LIDOCAINE PATCH REMOVAL MC SCH (21:12)
[2017-04-22 06:44] VITALS: TEMP 97.2
[2017-04-22] MEDS: GABAPENTIN 300 MG CAPSULE (FP) PO SCH ×3 (06:57→21:11)
[2017-04-22] MEDS: CYCLOBENZAPRINE HCL 10 MG TABLET (FP) PO SCH ×3 (06:57→21:11)
[2017-04-22] MEDS: QUEtiapine FUMARATE 50 MG TABLET PO SCH (09:25)
[2017-04-22] MEDS: PANTOPRAZOLE 40 MG TABLET (FP) PO SCH (09:25)
[2017-04-22] MEDS: PRENATAL VITAMINS W/ FOLIC ACID TABLET (FP) PO SCH (09:25)
[2017-04-22] MEDS: NAPROXEN 500 MG TABLET (FP) PO SCH ×2 (09:25→21:11)
[2017-04-22] MEDS: LIDOCAINE 5% TOPICAL PATCH TP SCH (09:26)
[2017-04-22] MEDS: NICOTINE 21 MG/24 HOURS TOPICAL PATCH TD SCH (09:26)
[2017-04-22] MEDS: THIAMINE HCL 100 MG TABLET (FP) PO SCH (21:11)
[2017-04-22] MEDS: SENNOSIDES 8.6MG TABLET (FP) PO SCH (21:11)
[2017-04-22] MEDS: DOCUSATE SODIUM 100 MG CAPSULE (FP) PO SCH (21:11)
[2017-04-22] MEDS: QUEtiapine FUMARATE 100 MG TABLET (FP) PO SCH (21:11)
[2017-04-22] MEDS: LIDOCAINE PATCH REMOVAL MC SCH (21:12)
[2017-04-23] MEDS: GABAPENTIN 300 MG CAPSULE (FP) PO SCH (06:33)
[2017-04-23] MEDS: CYCLOBENZAPRINE HCL 10 MG TABLET (FP) PO SCH (06:33)
[2017-04-23 06:38] VITALS: BP 124/73; PULSE 70
--- NOTE | 2017-04-23 08:08 | PN ---
Psychiatric Progress Note Vital Signs: Vital Signs Period Temp Pulse Resp BP Sys/Murray Pulse Ox Last 24 Hr 97.2 F 70 16-18 124/73 Date of Session: 04/23/17 Chief Complaint:: discharge visit HPI: Patient has addressed alcohol, opioid dependence comorbid drug induced mood disorder, insomnia. Current Medications: Active Medications Generic Name Dose Route Start Last Admin Trade Name Freq PRN Reason Stop Dose Admin Acetaminophen 650 mg 03/26/17 14:40 Tylenol - PO Q4H PRN FEVER OR PAIN Al Hydroxide/Mg Hydroxide 30 ml 03/26/17 14:40 04/19/17 21:11 Mylanta Oral Suspension - PO 30 ml Q6H PRN Administration DYSPEPSIA Cyclobenzaprine HCl 10 mg 03/27/17 14:00 04/23/17 06:33 Flexeril - PO 10 mg TID JUN Administration Docusate Sodium 300 mg 04/02/17 22:00 04/22/17 21:11 Colace - PO 300 mg HS JUN Administration Eucalyptus/Menthol/Phenol/Sorbitol 1 each 03/26/17 14:40 Cepastat Lozenge - MM Q4H PRN SORE THROAT Gabapentin 300 mg 04/10/17 14:00 04/23/17 06:33 Neurontin - PO 300 mg TID JUN Administration Guaifenesin 10 ml 03/26/17 14:40 Robitussin Dm - PO Q6H PRN COUGH Lidocaine 1 patch 03/27/17 13:40 04/22/17 09:26 Lidoderm Patch - TP Not Given DAILY JUN Loperamide HCl 4 mg 03/26/17 14:40 Imodium - PO Q6H PRN DIARRHEA Magnesium Citrate 300 ml 03/26/17 14:40 Citroma - PO Q48H PRN CONSTIPATION Magnesium Hydroxide 30 ml 03/26/17 14:40 Milk Of Magnesia - PO DAILY PRN CONSTIPATION Miscellaneous 1 each 03/27/17 22:00 04/22/17 21:12 Lidoderm Patch Removal MC Not Given DAILY@2200 JUN Naproxen 500 mg 03/27/17 13:40 04/22/17 21:11 Naprosyn - PO 500 mg BID JUN Administration Nicotine 21 mg 03/27/17 10:00 04/22/17 09:26 Nicoderm Patch - TD Not Given DAILY [facility] Nicotine Polacrilex 2 mg 03/26/17 14:40 Nicorette Gum - BUC Q2H PRN NICOTINE REPLACEMENT RX Pantoprazole Sodium 40 mg 03/27/17 13:40 04/22/17 09:25 Protonix - PO 40 mg DAILY JUN Administration Multivit/Folic Acid/Iron 1 tab 03/27/17 10:00 04/22/17 09:25 Vitamins (Sjr) - PO 1 tab DAILY JUN Administration Pseudoephedrine/Triprolidine 1 combo 03/26/17 14:40 Actifed - PO TID PRN NASAL CONGESTION Quetiapine Fumarate 100 mg 04/10/17 22:00 04/22/17 21:11 Seroquel - PO 100 mg HS JUN Administration Quetiapine Fumarate 50 mg 04/11/17 10:00 04/22/17 09:25 Seroquel - PO 50 mg DAILY JUN Administration Senna 2 tab 04/02/17 22:00 04/22/17 21:11 Senna - PO 2 tab HS JUN Administration Thiamine HCl 100 mg 03/26/17 22:00 04/22/17 21:11 Vitamin B1 - PO 100 mg HS JUN Administration Current Side Effect: No Lab tests ordered: No Lab tests reviewed: Yes Provider note:: Patient has completed today this treatment and met his treatment goals, he will continue to address his issues at [facility] outpatient treatment program. The patient aknowledges considerable benefts from this rehabilitation program. He has gained insight into the importance of changing behavior for the utilization of supports available to continue maintain abstinence. He was able to identify behaviors which contribute to relapse and learned skills through this program that he will utilize to maintain sobriety. Patient reports Gabapentin and Seroquel have been effective for the management of his mental condition, medications were tolerated well, no side -effects reported, sripts for 30 days provided, patient is stable for discharge. Total face to face time:: 15 Mental Status Exam - Mental Status Exam Alert and Oriented to: Time, Place, Person Cognitive Function: Good Patient Appearance: Well Groomed Mood: Hopeful Affect: Mood Congruent Patient Behavior: Appropriate, Cooperative Speech Pattern: Clear, Appropriate Voice Loudness: Normal Thought Process: Intact, Goal Oriented Thought Disorder: Not Present Hallucinations: Denies Suicidal Ideation: Denies Homicidal Ideation: Denies Insight/Judgement: Fair Sleep: Fair Appetite: Fair Muscle strength/Tone: Normal Gait/Station: Normal
[2017-04-23] MEDS: PANTOPRAZOLE 40 MG TABLET (FP) PO SCH (09:56)
[2017-04-23] MEDS: PRENATAL VITAMINS W/ FOLIC ACID TABLET (FP) PO SCH (09:56)
[2017-04-23] MEDS: QUEtiapine FUMARATE 50 MG TABLET PO SCH (09:56)
[2017-04-23] MEDS: NAPROXEN 500 MG TABLET (FP) PO SCH (09:57)
[2017-04-23] MEDS: LIDOCAINE 5% TOPICAL PATCH TP SCH (09:57)
[2017-04-23] MEDS: NICOTINE 21 MG/24 HOURS TOPICAL PATCH TD SCH (09:57)
== END 2017-04-23 10:45 | disposition home or self-care (01) | DRG 772 ==
LOC: YASAS 15:07 → Y5N 15:10
PROVIDERS: ADMIT Psychiatry & Neurology Psychiatry; ATTEND Psychiatry & Neurology Psychiatry
PROC: HZ42ZZZ Group Counseling for Substance Abuse Treatment, Cognitive-Behavioral (ICD-10-PCS; principal; 2017-03-26)
DX: F11.20 Opioid dependence, uncomplicated (principal); F10.20 Alcohol dependence, uncomplicated; F19.24 Other psychoactive substance dependence with psychoactive substance-induced mood disorder; G47.00 Insomnia, unspecified; E86.0 Dehydration; K70.10 Alcoholic hepatitis without ascites; M25.552 Pain in left hip; R79.89 Other specified abnormal findings of blood chemistry; K43.9 Ventral hernia without obstruction or gangrene
CPT/HCPCS: 36415; 80053; 83690; 85610